=== PATIENT | male | born 1990 | race Caucasian/White ===

== ENCOUNTER 2024-07-16 16:06 | Inpatient (IN) | payer MEDICAID, OTHER ==
[~2024-07-16] VITALS: Ht 185.4 cm; Wt 109.0 kg
[~2024-07-16 16:06] MED LIST: TAMS-35 PO
[2024-07-16 17:05] LABS: Urine Bacteria FEW /hpf (None Seen); Urine Blood 3+ /uL (Negative); Urine Clarity Clear (Clear); Urine Color Light-Yellow (Yellow); Urine Mucus FEW (None Seen); Urine Protein, UAD Negative (Negative); Urine Squamous Epithelial Cell FEW /hpf (<5); Urine Urobilinogen Normal (Negative); Urine WBC 2 /HPF (0-3); Urine pH 5.5 (5.0-9.0)
--- NOTE | 2024-07-16 18:48 | ED.PDOC ---
General HPI Comments 33 y.o male presents to the ED for a chief complaint of hematuria associated with nausea, lower back and abdominal pain that started today. Patient reports going to the restroom and noticing bright red blood, states he finished urinating and was still dribbling blood. 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 Patient denies any vomiting, diarrhea, constipation, fever, chills or flank pain. Patient has a medical history of kidney stones with ureter stent placement. Chief Complaint: Urinary Time Seen by MD: 18:27 Primary Care Provider: NONE Reviewed notes: Nurses Notes, Medications, Allergies Allergies: Coded Allergies: Ciprofloxacin (Verified Allergy, Severe, RASH, 07/17/17) Ibuprofen (Verified Allergy, Severe, RASH, 07/17/17) Sulfa Antibiotics (Verified Allergy, Severe, RASH, 07/17/17) Home Meds Active Scripts Tamsulosin Hcl (Flomax) 0.4 Mg Cap, 0.4 MG PO QPM, #7 CAP Prov:ERIKA ORTIZ MD 07/20/17 Information Source: Patient Mode of Arrival: Ambulatory Severity: Moderate Timing: Hours Duration: Since onset Onset: Spontaneous Symptoms: Hematuria History of: Kidney stone Location: Abdomen Penile discharge: None Modifying factors: None associated signs and symptoms: Abdominal Pain, Nausea, Back Pain, Hematuria Past Medical History PAST MEDICAL HISTORY: Kidney Stones Surgical History (Other): ureter stent Family History Family History: No family hx of HTN Social History Smoker: Non-Smoker Alcohol: Denies ETOH Use Drugs: Marijuana Lives In: Home Constitutional: denies: chills, diaphoresis, fatigue, fever, malaise, sweats, weakness, others EENTM: denies: blurred vision, double vision, ear bleeding, ear discharge, ear drainage, ear pain, ear ringing, eye pain, eye redness, hearing loss, mouth pain, mouth swelling, nasal discharge, nose bleeding, nose congestion, nose pain, photophobia, tearing, throat pain, throat swelling, voice changes, others Respiratory: denies: cough, hemoptysis, orthopnea, SOB at rest, shortness of breath, SOB with excertion, stridor, wheezing, others Cardiovascular: denies: chest pain, dizzy spells, diaphoresis, Dyspnea on exertion, edema, irregular heart beat, left arm pain, lightheadedness, palpitations, PND, syncope, others Gastrointestinal: reports: abdominal pain; denies: abdomen distended, blood streaked bowels, constipated, diarrhea, dysphagia, difficulty swallowing, hematemesis, melena, nausea, poor appetite, poor fluid intake, rectal bleeding, rectal pain, vomiting, others Genitourinary: reports: hematuria; denies: burning, dysuria, flank pain, frequency, incontinence, penile discharge, penile sore, pain, testicle pain, testicle swelling, urgency, others Neurological: denies: dizziness, fainting, headache, left sided numbness, left sided weakness, numbness, paresthesia, pre-existing deficit, right sided numbness, right sided weakness, seizure, speech problems, tingling, tremors, weakness, others Musculoskeletal: reports: back pain; denies: gout, joint pain, joint swelling, muscle pain, muscle stiffness, neck pain, others Integumetry: denies: bruises, change in color, change in hair/nails, dryness, laceration, lesions, lumps, rash, wounds, others Allergic/Immunocompromised: denies: Difficulty Healing, Frequent Infections, Hives, Itching, others Hematologic/Lymphatic: denies: anemia, blood clots, easy bleeding, easy bruising, swollen glands, others Endocrine: denies: excessive hunger, excessive sweating, excessive thirst, excessive urination, flushing, intolerance to cold, intolerance to heat, unexplained weight gain, unexplained weight loss, others Psychiatric: denies: anxiety, bipolar disorder, depression, hopeless, panic disorder, schizophrenia, sleepless, suicidal, others All Other Systems: Reviewed and Negative Physical Exam General Appearance: No Apparent Distress HEENT: Other (Pupils and face symmetric. Moist mucous membranes.) Neck: Full Range of Motion, Normal Inspection Respiratory: Lungs Clear, No Accessory Muscle Use, No Respiratory Distress, Normal Breath Sounds Cardiovascular: No Edema, No JVD, Regular Rate/Rhythm Breast Exam: Deferred Gastrointestinal: Soft, Suprapubic, Tenderness Genitalia: Deferred Pelvic: Deferred Rectal: Deferred Extremities: Normal inspection, Normal range of motion, Non-tender, No pedal edema Neurologic: Alert (Oriented x4), Normal Affect, Normal Mood, Other (Ambulatory without difficulty) Cerebellar Function: NOT DONE Reflexes: NOT DONE Skin: Dry, Normal Color, Warm Lymphatic: NOT DONE Was a procedure done? Was a procedure done?: No Differential Diagnosis Kidney stone (Female): N/A Kidney stone (Male): Pyelonephritis, Renal failure, Strain, Urinary obstruct ion, Urolithiasis, Urinary tract infection X-Ray, Labs, Meds, VS Vital Signs Date Time Temp Pulse Resp B/P (MAP) Pulse Ox O2 Delivery O2 Flow Rate FiO2 07/16/24 21:46 63 16 165/80 07/16/24 21:16 97.8 63 16 165/80 (108) 95 97.8 07/16/24 21:16 63 14 95 Room Air* 0 21 07/16/24 16:28 98.4 80 18 140/70 (93) 97 98.4 Lab Test 07/16/24 18:32 07/16/24 16:32 Range/Units White Blood Count 9.9 4.4-10.8 10^3/uL Red Blood Count 5.15 4.5-5.90 10^6/uL Hemoglobin 16.4 13.5-17.5 g/dL Hematocrit 47.8 41.0-53.0 % Mean Corpuscular Volume 92.8 80.0-100.0 fL Mean Corpuscular Hemoglobin 31.8 28.0-32.0 pg Mean Corpuscular Hemoglobin Concent 34.2 32.0-36.0 g/dL Red Cell Distribution Width 13.3 11.8-14.3 % Platelet Count 307 140-450 10^3/uL Mean Platelet Volume 8.3 6.9-10.8 fL Neutrophils (%) (Auto) 62.6 37.0-80.0 % Lymphocytes (%) (Auto) 26.3 10.0-50.0 % Monocytes (%) (Auto) 8.8 0.0-12.0 % Eosinophils (%) (Auto) 1.4 0.0-7.0 % Basophils (%) (Auto) 0.9 0.0-2.0 % Neutrophils # (Auto) 6.2 1.6-8.6 10 ^3/uL Lymphocytes # (Auto) 2.6 0.4-5.4 10 ^3/uL Monocytes # (Auto) 0.9 0-1.3 10 ^3/uL Eosinophils # (Auto) 0.1 0-0.8 10 ^3/uL Basophils # (Auto) 0.1 0-0.2 10 ^3/uL Nucleated Red Blood Cells 0.2 % Prothrombin Time 10.8 9.3-11.8 sec Prothrombin Time INR 1.02 0.9-1.15 Activated Partial Thromboplast Time 28.8 24.5-34.5 SEC Sodium Level 140 136-145 mmol/L Potassium Level 4.2 3.5-5.1 mmol/L Chloride Level 105 98-107 mmol/L Carbon Dioxide Level 27 20-31 mmol/L Anion Gap 8 5-15 Blood Urea Nitrogen 7 L 9-23 mg/dL Creatinine 0.85 0.700-1.30 mg/dL Glomerular Filtration Rate Calc 118 >90 mL/min BUN/Creatinine Ratio 8.2 L 10.0-20.0 Serum Glucose 87 74-106 mg/dL Calcium Level 10.1 8.7-10.4 mg/dL Urine Color Light-yellow Yellow Urine Clarity Clear Clear Urine pH 5.5 5.0-9.0 Urine Specific [place] 1.020 1.001-1.035 Urine Protein Negative Negative Urine Ketones Negative Negative Urine Blood 3+ H Negative /uL Urine Nitrite Negative Negative Urine Bilirubin Negative Negative Urine Urobilinogen Normal Negative mg/dL Urine Leukocyte Esterase Negative Negative /uL Urine RBC 2 0 - 3 /hpf Urine Microscopic WBC 2 0-3 /HPF Urine Squamous Epithelial Cells Few <5 /hpf Urine Bacteria Few H None Seen /hpf Urine Mucus Few None Seen Urine Glucose Normal Normal mg/dL Current Medications Medications (Trade) Dose Ordered Sig/Rosendo Route Start Time Stop Time Status Last Admin Morphine Sulfate 4 mg ONCE ONCE IV 07/16/24 19:00 07/16/24 19:01 DC 07/16/24 21:46 Ondansetron HCl (Zofran) 4 mg ONCE ONCE IV 07/16/24 19:00 07/16/24 19:01 DC 07/16/24 21:45 Sodium Chloride 1,000 ml @ 1,000 mls/hr Q1H ONCE IV 07/16/24 19:00 07/16/24 19:59 DC 07/16/24 21:[address] [address] Ph: [phone] DIAGNOSTIC IMAGING Diagnostic Imaging Report : [id number] Signed PATIENT: YOCASTA DEE ACCT: [id number] UNIT: [id number] : 1990 LOC: ER ROOM / BED: / AGE / SEX: 33 / M ADM STATUS: REG ER SERVICE 1754 ORDERING PHYSICIAN: VALENTINA RIOS MD PROCEDURE(s): ABPL - CT AB PEL WO CON-NO ORAL OR IV REASON: hematuria ORDER NUMBER(s): [id number], ACCESSION NUMBER(s): [id number] Exam: CT CT AB PEL WO CON-NO ORAL OR IV History: hematuria Comparison Study: None available at time of dictation. TECHNIQUE: Multidetector CT of the abdomen was performed from lung bases to pubic symphysis. Imaging was performed without IV contrast. Axial, coronal and sagittal multiplanar reformats were obtained from the axial data set by the technologist. Radiation Dose Information: CT Dose: CTDI volume is 25.7 mGy. Dose-length product is 1529.53 mGy*cm FINDINGS: Evaluation of solid organs is limited due to lack of intravenous contrast use. Findings: Lung Bases: No acute or significant lung base finding. Normal heart size. No pleural or pericardial effusion. Liver: The liver is normal in size. No focal lesions. Gallbladder and Biliary Tree: Unremarkable Spleen: Unremarkable Pancreas: The pancreas is grossly normal in appearance. Adrenal Glands: Unremarkable Kidneys: Kidneys are grossly normal without calculi or hydronephrosis. No n ephrolithiasis or hydronephrosis. No ureteral calculi. No bladder calculi. Bladder: Grossly unremarkable for degree of distention. Bowel: The stomach is grossly normal in appearance. Small bowel and colon are normal in caliber and distribution. The appendix is not visualized; however, no secondary findings of acute appendicitis identified. Ascites: Absent Lymphadenopathy: No mesenteric, retroperitoneal or periportal lymphadenopathy. Abdominal Wall and Mesentery: Unremarkable. Vasculature: The visualized abdominal aorta is normal in size and caliber. Evaluation of abdominal and pelvic vessels is limited due to lack of intravenous contrast. Pelvic Organs: Unremarkable Musculoskeletal: No aggressive focal bony lesions, acute fractures or dislocatio n. Soft tissues: Unremarkable IMPRESSION: 1. No nephrolithiasis no hydronephrosis. 2. No ureteral calculi or bladder calculi. 3. No calcified gallstones. 4. No findings of bowel obstruction. Radiation optimization: All CT scans at this facility use at least one of these dose optimization techniques: automated exposure control mA and/or kV adjustment per patient size (includes targeted exams where dose is matched to clinical indication) or iterative reconstruction. X-Ray, Labs, Meds, VS Comment 33-year-old male with a history of kidney stones complaining of hematuria, nausea and dysuria Vitals unremarkable Exam remarkable for suprapubic tenderness to palpation Rhythm strip independently interpreted by me: Sinus rhythm, rate 80, no ectopy. CT abdomen and pelvis IMPRESSION: 1. No nephrolithiasis no hydronephrosis. 2. No ureteral calculi or bladder calculi. 3. No calcified gallstones. 4. No findings of bowel obstruction. CBC, basic metabolic panel and coagulation panel unremarkable, UA positive for blood and bacteria Patient treated with the following in the ED: 1 L 0.9 normal saline IV bolus, morphine 4 mg IV, Zofran 4 mg IV, Rocephin 1 g IV On re-evaluation, patient states pain has improved. Vitals were stable. Repeat abdominal exam was benign. Hospitalization was considered, however patient had rapid improvement of symptoms with treatment in the ED, and I no longer feel hospitalization is necessary. Workup findings indicate possible recently passed stone versus UTI or both. Patient now appears stable for discharge with close outpatient follow- up with his primary physician. Rx Keflex, Tylenol, ibuprofen, Pyridium Time of 1ST Reevaluation: 18:54 Reevaluation 1ST: Unchanged Time of 2ND Reevaluation: 22:28 Patient Education/Counseling: Diagnosis, Treatment, Prognosis Family Education/Counseling: No Family Present Departure 1 Departure Time of Disposition: 22:29 Impression: Primary Impression: Hematuria Additional Impression: UTI (urinary tract infection) Disposition: 01 HOME / SELF CARE / HOMELESS Condition: Stable Additional Instructions: Your blood tests were unremarkable. Your urine test showed blood and some bacteria, indicating a possible urinary infection. Your CT scan was unremarkable. I have enclosed the report below. Specifically, there was no evidence of kidney stones. I have prescribed antibiotics and pain medications. Follow-up with your primary doctor in 1-2 days. Return to ER for persistent or worsening symptoms. [place] [address] Ph: [phone] DIAGNOSTIC IMAGING Diagnostic Imaging Report : [id number] Signed PATIENT: YOCASTA DEE ACCT: [id number] UNIT: [id number] : 1990 LOC: ER ROOM / BED: / AGE / SEX: 33 / M ADM STATUS: [facility] ER SERVICE 1754 ORDERING PHYSICIAN: VALENTINA RIOS MD PROCEDURE(s): ABPL - CT AB PEL WO CON-NO ORAL OR IV REASON: hematuria ORDER NUMBER(s): [id number], ACCESSION NUMBER(s): [id number] Exam: CT CT AB PEL WO CON-NO ORAL OR IV History: hematuria Comparison Study: None available at time of dictation. TECHNIQUE: Multidetector CT of the abdomen was performed from lung bases to pubic symphysis. Imaging was performed without IV contrast. Axial, coronal and sagittal multiplanar reformats were obtained from the axial data set by the technologist. Radiation Dose Information: CT Dose: CTDI volume is 25.7 mGy. Dose-length product is 1529.53 mGy*cm FINDINGS: Evaluation of solid organs is limited due to lack of intravenous contrast use. Findings: Lung Bases: No acute or significant lung base finding. Normal heart size. No pleural or pericardial effusion. Liver: The liver is normal in size. No focal lesions. Gallbladder and Biliary Tree: Unremarkable Spleen: Unremarkable Pancreas: The pancreas is grossly normal in appearance. Adrenal Glands: Unremarkable Kidneys: Kidneys are grossly normal without calculi or hydronephrosis. No nephrolithiasis or hydronephrosis. No ureteral calculi. No bladder calculi. Bladder: Grossly unremarkable for degree of distention. Bowel: The stomach is grossly normal in appearance. Small bowel and colon are normal in caliber and distribution. The appendix is not visualized; however, no secondary findings of acute appendicitis identified. Ascites: Absent Lymphadenopathy: No mesenteric, retroperitoneal or periportal lymphadenopathy. Abdominal Wall and Mesentery: Unremarkable. Vasculature: The visualized abdominal aorta is normal in size and caliber. Evaluation of abdominal and pelvic vessels is limited due to lack of intravenous contrast. Pelvic Organs: Unremarkable Musculoskeletal: No aggressive focal bony lesions, acute fractures or dislocation. Soft tissues: Unremarkable IMPRESSION: 1. No nephrolithiasis no hydronephrosis. 2. No ureteral calculi or bladder calculi. 3. No calcified gallstones. 4. No findings of bowel obstruction. Radiation optimization: All CT scans at this facility use at least one of these dose optimization techniques: automated exposure control mA and/or kV adjustment per patient size (includes targeted exams where dose is matched to clinical indication) or iterative reconstruction. e-Prescriptions Phenazopyridine HCl (Phenazopyridine Hydrochol) 200 Mg Tab 200 MG PO TID PRN, #9 TAB Prn urinary pain Prov: VALENTINA RIOS MD 07/16/24 Ibuprofen Micronized (Ibuprofen) 800 Mg Tab 800 MG PO Q8HP PRN, #30 TAB Prn fever or pain. Take with food. Prov: VALENTINA RIOS MD 07/16/24 Acetaminophen (Tylenol Extra Strength) 500 Mg Tab 1000 MG PO Q6HP PRN, #30 TAB Prn fever or pain Prov: VALENTINA RIOS MD 07/16/24 Cephalexin Monohydrate (Cephalexin) 500 Mg Cap 1 CAP PO QID for 10 Days, #40 CAP Prov: VALENTINA RIOS MD 07/16/24 Discharged With: Relative Critical Care Note Critical Care Time?: No Stability Stability form required: No I personally scribed for VALENTINA RIOS MD (ARLENE) on 07/16/24 at 18:48. Electronically submitted by Sandra Nagy ([facility]). I personally scribed for VALENTINA RIOS MD) on 07/16/24 at 18:54. Electronically submitted by Sandra Nagy ([facility]). VALENTINA RIOS MD Jul 16, 2024 18:48
[2024-07-16 18:58] LABS: Chloride 105 mmol/L (98-107); Potassium 4.2 mmol/L (3.5-5.1); Sodium 140 mmol/L (136-145)
[2024-07-16 18:59] LABS: Anion Gap 8 (5-15); Calcium 10.1 mg/dL (8.7-10.4); Carbon Dioxide 27 mmol/L (20-31)
[2024-07-16 19:04] LABS: BUN/Creatinine Ratio 8.2 (10.0-20.0); Glucose 87 mg/dL (74-106)
[2024-07-16 19:08] LABS: Basophils # (auto) 0.1 10 ^3/uL (0-0.2); Basophils % (auto) 0.9 % (0.0-2.0); Blood Urea Nitrogen 7 mg/dL (9-23); Eosinophils # (auto) 0.1 10 ^3/uL (0-0.8); Eosinophils % (auto) 1.4 % (0.0-7.0); Hematocrit 47.8 % (41.0-53.0); Hemoglobin 16.4 g/dL (13.5-17.5); Lymphocytes # (auto) 2.6 10 ^3/uL (0.4-5.4); Lymphocytes % (auto) 26.3 % (10.0-50.0); Mean Corpuscular Hemoglobin 31.8 pg (28.0-32.0); Mean Corpuscular Hgb Conc. 34.2 g/dL (32.0-36.0); Mean Corpuscular Volume 92.8 fL (80.0-100.0); Monocytes # (auto) 0.9 10 ^3/uL (0-1.3); Monocytes % (auto) 8.8 % (0.0-12.0); Neutrophils # (auto) 6.2 10 ^3/uL (1.6-8.6); Neutrophils % (auto) 62.6 % (37.0-80.0); Nucleated Red Blood Cells % 0.2 %; Platelet Count (auto) 307 10^3/uL (140-450); Red Blood Cells 5.15 10^6/uL (4.5-5.90); Red Cell Distribution Width 13.3 % (11.8-14.3); White Blood Cell 9.9 10^3/uL (4.4-10.8)
[2024-07-16 19:20] LABS: INR 1.02 (0.9-1.15); Partial Thromboplastin Time 28.8 SEC (24.5-34.5); Prothrombin Time 10.8 sec (9.3-11.8)
--- NOTE | 2024-07-16 19:27 | DVH ---
Exam: CT CT AB PEL WO CON-NO ORAL OR IV History: hematuria Comparison Study: None available at time of dictation. TECHNIQUE: Multidetector CT of the abdomen was performed from lung bases to pubic symphysis. Imaging was performed without IV contrast. Axial, coronal and sagittal multiplanar reformats were obtained fr om the axial data set by the technologist. Radiation Dose Information: CT Dose: CTDI volume is 25.7 mGy. Dose-length product is 1529.53 mGy*cm FINDINGS: Evaluation of solid organs is limited due to lack of intravenous contrast use. Findings: Lung Bases: No acute or significant lung base finding. Normal heart size. No pleural or pericardial effusion. Liver: The liver is normal in size. No focal lesions. Gallbladder and Biliary Tree: Unremarkable Spleen: Unremarkable Pancreas: The pancreas is grossly normal in appearance. Adrenal Glands: Unremarkable Kidneys: Kidneys are grossly normal without calculi or hydronephrosis. No nephrolithiasis or hydronep hrosis. No ureteral calculi. No bladder calculi. Bladder: Grossly unremarkable for degree of distention. Bowel: The stomach is grossly normal in appearance. Small bowel and colon are normal in caliber and d istribution. The appendix is not visualized; however, no secondary findings of acute appendicitis id entified. Ascites: Absent Lymphadenopathy: No mesenteric, retroperitoneal or periportal lymphadenopathy. Abdominal Wall and Mesentery: Unremarkable. Vasculature: The visualized abdominal aorta is normal in size and caliber. Evaluation of abdominal a nd pelvic vessels is limited due to lack of intravenous contrast. Pelvic Organs: Unremarkable Musculoskeletal: No aggressive focal bony lesions, acute fractures or dislocation. Soft tissues: Unremarkable IMPRESSION: 1. No nephrolithiasis no hydronephrosis. 2. No ureteral calculi or bladder calculi. 3. No calcified gallstones. 4. No findings of bowel obstruction. Radiation optimization: All CT scans at this facility use at least one of these dose optimization sriram hniques: automated exposure control mA and/or kV adjustment per patient size (includes targeted exam s where dose is matched to clinical indication) or iterative reconstruction.
[2024-07-16 21:16] VITALS: PULSE 63; RESP 14; O2SAT 95
[2024-07-16] MEDS: SODIUM CHLORIDE 0.9% 1,000 ML IV ONE (21:45)
[2024-07-16] MEDS: ONDANSETRON HCL 4 MG/2 ML VIAL IV ONE (21:45)
[2024-07-16] MEDS: MORPHINE SULFATE 4 MG/ML SYR/VIAL IV ONE (21:46)
[2024-07-16] MEDS ORDERED: IBUP-1455 PO (22:33)
[2024-07-16] MEDS ORDERED: PHEN-1045 PO (22:33)
[2024-07-16] MEDS ORDERED: ACET-1304 PO (22:33)
[2024-07-16] MEDS ORDERED: CEPH500C PO (22:33)
[2024-07-16] MEDS: PHENAZOPYRIDINE HCL 100 MG TAB PO ONE (23:37)
[2024-07-16] MEDS: KETOROLAC TROMETH 30 MG/ML 1ML VIAL IV ONE (23:38)
[2024-07-16] MEDS: cefTRIAXone 1GM/50ML D5W 50 ML IV ONE (23:38)
[2024-07-17] VITALS (10 sets, daily range): BP systolic 119–149; BP diastolic 60–80; PULSE 60–100; RESP 15–19; TEMP 97.2–98.5; O2SAT 10–100
--- NOTE | 2024-07-17 00:49 | ED.PDOC ---
Departure 1 Departure Time of Disposition: 00:48 (Attempted to discharge patient however patient developed worsening pain that was intractable. We will admit patient for further workup) Impression: Primary Impression: Hematuria Qualified Codes: R31.9 - Hematuria, unspecified Additional Impressions: UTI (urinary tract infection) Qualified Codes: N30.01 - Acute cystitis with hematuria Flank pain Disposition: ADMITTED INPATIENT Admit to: Med Surg Condition: Serious Additional Instructions: Your blood tests were unremarkable. Your urine test showed blood and some bacteria, indicating a possible urinary infection. Your CT scan was unremarkable. I have enclosed the report below. Specifically, there was no evidence of kidney stones. I have prescribed antibiotics and pain medications. Follow-up with your primary doctor in 1-2 days. Return to ER for persistent or worsening symptoms. [place] [address] Ph: [phone] DIAGNOSTIC IMAGING Diagnostic Imaging Report : [id number] Signed PATIENT: YOCASTA DEE ACCT: [id number] UNIT: [id number] : 1990 LOC: ER ROOM / BED: / AGE / SEX: 33 / M ADM STATUS: [facility] ER SERVICE 3898 ORDERING PHYSICIAN: VALENTINA RIOS MD PROCEDURE(s): ABPL - CT AB PEL WO CON-NO ORAL OR IV REASON: hematuria ORDER NUMBER(s): [id number], ACCESSION NUMBER(s): [id number] Exam: CT CT AB PEL WO CON-NO ORAL OR IV History: hematuria Comparison Study: None available at time of dictation. TECHNIQUE: Multidetector CT of the abdomen was performed from lung bases to pubic symphysis. Imaging was performed without IV contrast. Axial, coronal and sagittal multiplanar reformats were obtained from the axial data set by the technologist. Radiation Dose Information: CT Dose: CTDI volume is 25.7 mGy. Dose-length product is 1529.53 mGy*cm FINDINGS: Evaluation of solid organs is limited due to lack of intravenous contrast use. Findings: Lung Bases: No acute or significant lung base finding. Normal heart size. No pleural or pericardial effusion. Liver: The liver is normal in size. No focal lesions. Gallbladder and Biliary Tree: Unremarkable Spleen: Unremarkable Pancreas: The pancreas is grossly normal in appearance. Adrenal Glands: Unremarkable Kidneys: Kidneys are grossly normal without calculi or hydronephrosis. No nephrolithiasis or hydronephrosis. No ureteral calculi. No bladder calculi. Bladder: Grossly unremarkable for degree of distention. Bowel: The stomach is grossly normal in appearance. Small bowel and colon are normal in caliber and distribution. The appendix is not visualized; however, no secondary findings of acute appendicitis identified. Ascites: Absent Lymphadenopathy: No mesenteric, retroperitoneal or periportal lymphadenopathy. Abdominal Wall and Mesentery: Unremarkable. Vasculature: The visualized abdominal aorta is normal in size and caliber. Evaluation of abdominal and pelvic vessels is limited due to lack of intravenous contrast. Pelvic Organs: Unremarkable Musculoskeletal: No aggressive focal bony lesions, acute fractures or dislocation. Soft tissues: Unremarkable IMPRESSION: 1. No nephrolithiasis no hydronephrosis. 2. No ureteral calculi or bladder calculi. 3. No calcified gallstones. 4. No findings of bowel obstruction. Radiation optimization: All CT scans at this facility use at least one of these dose optimization techniques: automated exposure control mA and/or kV adjustment per patient size (includes targeted exams where dose is matched to clinical indication) or iterative reconstruction. e-Prescriptions Phenazopyridine HCl (Phenazopyridine Hydrochol) 200 Mg Tab 200 MG PO TID PRN, #9 TAB Prn urinary pain Prov: VALENTINA RIOS MD 07/16/24 Ibuprofen Micronized (Ibuprofen) 800 Mg Tab 800 MG PO Q8HP PRN, #30 TAB Prn fever or pain. Take with food. Prov: VALENTINA RIOS MD 07/16/24 Acetaminophen (Tylenol Extra Strength) 500 Mg Tab 1000 MG PO Q6HP PRN, #30 TAB Prn fever or pain Prov: VALENTINA RIOS MD 07/16/24 Cephalexin Monohydrate (Cephalexin) 500 Mg Cap 1 CAP PO QID for 10 Days, #40 CAP Prov: VALENTINA RIOS MD 07/16/24 Discharged With: Relative HARI SUN MD Jul 17, 2024 00:49
[2024-07-17] MEDS ORDERED: ACETAMINOPHEN 325 MG TAB PO PRN (01:00)
--- NOTE | 2024-07-17 01:05 | DVHHPRES ---
History of Present Illness Resident Creating Document: REBEL OBRIEN History of Present Illness James Laboy is a 33-year-old male patient who presents to the ED with chief complaint of hematuria and right flank pain. Per patient he has constant hepatic dribbling from penis even when he is not urinating. The pain actually starts from his penile area and goes up to his right flank. Denies fever, chills, palpitation, syncope, chest pain, dyspnea, nausea, vomiting, diarrhea, dysuria, sick contacts, recent travel and motor or sensory deficits. Past medical history: Hypertension, kidney stones diagnosed approximately three years ago with requirement of stent placement and removal and two sessions of lithotripsy, patient describes probable urethral stricture (says that they could not place a baby catheter through his penis), he was evaluated by Dr. Guerra previously. Crohn's disease, benign small intestine tumor. 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 Father of stroke Social history: Lives in [place] with family. Ex tobacco abuse (approximately 1-2 cigarettes a day only for two years), per patient he stopped smoking alcohol three days ago. Denies current alcohol and other drug abuse Allergies: Ciprofloxacin, sulfa antibiotics, ibuprofen Home medication: Tylenol In seen and examined in ED chair. Currently presents right flank pain. Could not examine his penis to evaluate hemorrhagic drainage. Past Medical History Per HPI Past Surgical History Per HPI Family History Per HPI Past Social History Per HPI Review of Systems Review of Systems Per HPI Allergies: Coded Allergies: Ciprofloxacin (Verified Allergy, Severe, RASH, 07/17/17) Ibuprofen (Verified Allergy, Severe, RASH, 07/17/17) Sulfa Antibiotics (Verified Allergy, Severe, RASH, 07/17/17) Nitrofurantoin (Verified Allergy, Unknown, 07/20/24) Exam Vital Signs Vital Signs Date Time Temp Pulse Resp B/P (MAP) Pulse Ox O2 Delivery O2 Flow Rate FiO2 07/16/24 22:16 60 16 155/70 07/16/24 21:16 97.8 95 97.8 07/16/24 21:16 Room Air* 0 21 Exam Patient lying in bed, in no acute distress General: Lucid, afebrile, mucosae are moist Cardiovascular: Normal S1 and S2. No murmurs, gallops or rubs Respiratory: Normal ventilation mechanics. Clear lung sounds on auscultation Abdomen: Soft, nontender, no organomegaly, normal bowel sounds MSK/skin: Mobilizes 4 limbs. Skin is dry and warm : Right costovertebral tenderness on percussion. Could not examine penis Neurological: Oriented in 3 spheres. No motor no sensitive deficits. Pupils are isocoric and reactive Labs/Xrays Labs Test 07/16/24 18:32 07/16/24 16:32 Range/Units White Blood Count 9.9 4.4-10.8 10^3/uL Red Blood Count 5.15 4.5-5.90 10^6/uL Hemoglobin 16.4 13.5-17.5 g/dL Hematocrit 47.8 41.0-53.0 % Mean Corpuscular Volume 92.8 80.0-100.0 fL Mean Corpuscular Hemoglobin 31.8 28.0-32.0 pg Mean Corpuscular Hemoglobin Concent 34.2 32.0-36.0 g/dL Red Cell Distribution Width 13.3 11.8-14.3 % Platelet Count 307 140-450 10^3/uL Mean Platelet Volume 8.3 6.9-10.8 fL Neutrophils (%) (Auto) 62.6 37.0-80.0 % Lymphocytes (%) (Auto) 26.3 10.0-50.0 % Monocytes (%) (Auto) 8.8 0.0-12.0 % Eosinophils (%) (Auto) 1.4 0.0-7.0 % Basophils (%) (Auto) 0.9 0.0-2.0 % Neutrophils # (Auto) 6.2 1.6-8.6 10 ^3/uL Lymphocytes # (Auto) 2.6 0.4-5.4 10 ^3/uL Monocytes # (Auto) 0.9 0-1.3 10 ^3/uL Eosinophils # (Auto) 0.1 0-0.8 10 ^3/uL Basophils # (Auto) 0.1 0-0.2 10 ^3/uL Nucleated Red Blood Cells 0.2 % Prothrombin Time 10.8 9.3-11.8 sec Prothrombin Time INR 1.02 0.9-1.15 Activated Partial Thromboplast Time 28.8 24.5-34.5 SEC Sodium Level 140 136-145 mmol/L Potassium Level 4.2 3.5-5.1 mmol/L Chloride Level 105 98-107 mmol/L Carbon Dioxide Level 27 20-31 mmol/L Anion Gap 8 5-15 Blood Urea Nitrogen 7 L 9-23 mg/dL Creatinine 0.85 0.700-1.30 mg/dL Glomerular Filtration Rate Calc 118 >90 mL/min BUN/Creatinine Ratio 8.2 L 10.0-20.0 Serum Glucose 87 74-106 mg/dL Calcium Level 10.1 8.7-10.4 mg/dL Urine Color Light-yellow Yellow Urine Clarity Clear Clear Urine pH 5.5 5.0-9.0 Urine Specific [place] 1.020 1.001-1.035 Urine Protein Negative Negative Urine Ketones Negative Negative Urine Blood 3+ H Negative /uL Urine Nitrite Negative Negative Urine Bilirubin Negative Negative Urine Urobilinogen Normal Negative mg/dL Urine Leukocyte Esterase Negative Negative /uL Urine RBC 2 0 - 3 /hpf Urine Microscopic WBC 2 0-3 /HPF Urine Squamous Epithelial Cells Few <5 /hpf Urine Bacteria Few H None Seen /hpf Urine Mucus Few None Seen Urine Glucose Normal Normal mg/dL Assessment/Plan Assessment/Plan Assessment: Gross hematuria UTI Probable urethral stricture History of kidney stones status post stent placement in two sessions of lithotripsy Crohn's disease History of Cryptorchidism status postop Benign small intestinal tumor Morbid obesity Hypertension Plan: Optimize pain management, gave IV fluid, under empiric IV antibiotic (ceftriaxone). Obtain abdomen and pelvis CT: No acute findings Urinalysis shows blood plus three and few bacteria Ordered urology evaluation. Patient has history of kidney stones with stent placement into sessions and lithotripsy, questionable urethral stricture. Patient is urinating at the time, no Vale is indicated. Ordered bladder scan to evaluate urinary retention Goals of care discussed with patient for over 18 minutes: Full code status Discussed plan with Dr. Holcomb, patient and nurses: Continue with IV fluids, empiric IV antibiotic and pain management. Ordered bladder scan to evaluate urinary retention. We will try to avoid Vale placement due to probable history of urethral stricture. Consulted Urology. Plan discussed with: Patient, Other (Nurses) My Orders Orders - REBEL OBRIEN RESIDENT Procedure Category Date Status Time Admit ADMIT 07/17/24 Verified 00:57 Code Status CODE 07/17/24 Verified 00:57 Vital Signs [facility] 07/17/24 Verified 00:57 Review Orders With [facility] 07/17/24 Verified Adm. 00:57 Npo (Nothing By DIET 07/17/24 Verified Mouth) Diet Breakfast Acetaminophen Tablet [facility] 07/17/24 Verified (Tylenol Tablet) 01:00 Notify Of Changes [facility] 07/17/24 Verified From Base 00:57 Advance Directive [facility] 07/17/24 Verified 00:57 Patient Condition ORDERS 07/17/24 Verified 00:57 Allergies [facility] 07/17/24 Verified 00:[address] [facility] 07/17/24 Verified (Zofran) 01:00 Morphine 2mg Iv Q4hprn PHA 07/17/24 Verified 01:00 Oxygen By Nasal RT 07/17/24 Verified Cannula 00:57 Stat Ekg For Chest [facility] 07/17/24 Verified Pain 00:57 Notify Of Changes [facility] 07/17/24 Verified From Base 00:57 Handbag Framer For [facility] 07/17/24 Verified 24 Hours 00:57 Emergency Dysrhythmia [facility] 07/17/24 Verified Protocol 00:57 Rhythm Strips Once [facility] 07/17/24 Verified Every Shift 00:57 * Urology Consult CONS 07/17/24 Verified 00:57 Kidney US 07/17/24 Verified 00:57 Urine Bacterial JAYCOB 07/17/24 Verified Culture 00:57 Ceftriaxone Ivpb PHA 07/17/24 Verified Rocephin 09:00 Vitamin D, 25-Hydroxy LAB 07/17/24 Verified 00:57 Vitamin B12 LAB 07/17/24 Verified 00:57 Thyroid Stimulating LAB 07/17/24 Verified Hormone 00:57 Phosphorus LAB 07/17/24 Verified 00:57 Magnesium LAB 07/17/24 Verified 00:57 Lipid Panel LAB 07/17/24 Verified 00:57 Hemoglobin A1c LAB 07/17/24 Verified 00:57 Drug Screen LAB 07/17/24 Verified 00:57 Hepatic Panel LAB 07/17/24 Verified 00:57 Complete Blood Count LAB 07/17/24 Verified 04:00 Basic Metabolic Panel LAB 07/17/24 Verified 04:00 Date of Service: Jul 17, 2024 Billing Provider: JON HOLCOMB MD Common Visit Codes: [id number] INP/OBS CARE (HIGH) REBEL OBRIEN RESIDENT Jul 17, 2024 01:05 JON HOLCOMB MD July 20, 2024 17:35
[2024-07-17] MEDS ORDERED: SODIUM CHLORIDE 0.9% 500 ML IV ONE (01:45)
[2024-07-17] MEDS ORDERED: TAMSULOSIN HYDROCHLORIDE 0.4 MG CAP PO ONE (01:45)
[2024-07-17] MEDS ORDERED: KETOROLAC TROMETH 30 MG/ML 1ML VIAL IV PRN ×2 (01:45→02:00)
[2024-07-17] MEDS ORDERED: SODIUM CHLORIDE 0.9% 1,000 ML IV SCH (01:45)
[2024-07-17 02:01] LABS: Amphetamine Screen, Urine Neg (NEGATIVE); Barbiturate Scree,Urine Neg (NEGATIVE); Benzodiazephine Screen, Urine Neg (NEGATIVE); Cannabinoid Screen, Urine Pos (NEGATIVE); Cocaine Screen, Urine Neg (NEGATIVE); Opiate Scree,Urine Neg (NEGATIVE); Phencyclidine Screen, Urine Neg (NEGATIVE)
--- NOTE | 2024-07-17 02:26 | DVH ---
US KIDNEY HISTORY: Hematuria COMPARISON: None TECHNIQUE: Real-time ultrasonography of the kidneys and urinary bladder was performed. FINDINGS: Right kidney measures 10.8 cm in length. Left kidney not fully visualized due to patient body habitus . No evidence of hydronephrosis or sonographically evident calculus or mass. Urinary bladder is incompl etely distended. Incidental note of increased hepatic echogenicity IMPRESSION: 1. No evidence of hydronephrosis or evident calculus. Poor visualization of the left kidney. 2. Incidental increased echogenicity of the liver suggesting fibrofatty hepatocellular disease, most commonly hepatic steatosis.
[2024-07-17] MEDS: TAMSULOSIN HYDROCHLORIDE 0.4 MG CAP PO ONE (03:49)
[2024-07-17] MEDS: ONDANSETRON HCL 4 MG/2 ML VIAL IV PRN (03:49)
[2024-07-17] MEDS: MORPHINE SULFATE INJ 2 MG/ml SYRG IV PRN (03:57)
[2024-07-17] MEDS: MORPHINE SULFATE INJ 2 MG/ml SYRG ONE (03:58)
[2024-07-17] MEDS: ONDANSETRON HCL 4 MG/2 ML VIAL ONE (03:58)
[2024-07-17] MEDS: SODIUM CHLORIDE 0.9% 500 ML IV ONE (04:03)
[2024-07-17 05:24] LABS: Basophils # (auto) 0.1 10 ^3/uL (0-0.2); Basophils % (auto) 0.9 % (0.0-2.0); Eosinophils # (auto) 0.2 10 ^3/uL (0-0.8); Eosinophils % (auto) 1.7 % (0.0-7.0); Hematocrit 42.1 % (41.0-53.0); Hemoglobin 14.7 g/dL (13.5-17.5); Lymphocytes # (auto) 2.5 10 ^3/uL (0.4-5.4); Lymphocytes % (auto) 22.4 % (10.0-50.0); Mean Corpuscular Hemoglobin 31.7 pg (28.0-32.0); Mean Corpuscular Hgb Conc. 34.9 g/dL (32.0-36.0); Mean Corpuscular Volume 90.8 fL (80.0-100.0); Monocytes # (auto) 1.2 10 ^3/uL (0-1.3); Monocytes % (auto) 10.8 % (0.0-12.0); Neutrophils # (auto) 7.2 10 ^3/uL (1.6-8.6); Neutrophils % (auto) 64.2 % (37.0-80.0); Platelet Count (auto) 295 10^3/uL (140-450); Red Blood Cells 4.63 10^6/uL (4.5-5.90); Red Cell Distribution Width 12.9 % (11.8-14.3); White Blood Cell 11.3 10^3/uL (4.4-10.8)
[2024-07-17 05:34] LABS: Magnesium 1.9 mg/dL (1.6-2.6); Total Protein 6.8 g/dL (5.7-8.2)
[2024-07-17 05:35] LABS: Albumin 4.4 g/dL (3.2-4.8); Bilirubin, Direct 0.1 mg/dL (<0.3); Bilirubin, Total 0.4 mg/dL (0.2-1.0); Phosphorus 3.2 mg/dL (2.4-5.1)
[2024-07-17 05:42] LABS: Anion Gap 6 (5-15); Carbon Dioxide 28 mmol/L (20-31); Chloride 107 mmol/L (98-107); Potassium 4.1 mmol/L (3.5-5.1); Sodium 141 mmol/L (136-145)
[2024-07-17 05:43] LABS: Calcium 9.5 mg/dL (8.7-10.4)
[2024-07-17 05:47] LABS: Glucose 89 mg/dL (74-106)
[2024-07-17 05:48] LABS: BUN/Creatinine Ratio 13.8 (10.0-20.0); Blood Urea Nitrogen 12 mg/dL (9-23)
[2024-07-17] MEDS: KETOROLAC TROMETH 30 MG/ML 1ML VIAL IV ONE (06:42)
[2024-07-17] MEDS: ERGOCALCIFEROL 50,000 UNIT(1.25MG) CAP PO SCH (06:52)
[2024-07-17] MEDS: CYANOCOBALAMIN (B-12) 1000 MCG/1 ML VIAL IM ONE (06:56)
[2024-07-17] MEDS: SODIUM CHLORIDE 0.9% 1,000 ML IV SCH (07:30)
[2024-07-17] MEDS: cefTRIAXone 1GM/50ML D5W 50 ML IV SCH (11:28)
--- NOTE | 2024-07-17 14:43 | DVHINCON2 ---
Date of service: Jul 17, 2024 Referring Physician Hospitalist Reason for Consultation Hematuria/urinary retention x 3 days History of Present Illness 33 y.o male admitted to [facility] for a chief complaint of hematuria associated with nausea, lower back and abdominal pain that started yesterday. He reports to me that he is unable to urinate for past three days. Patient reports going to the restroom and noticing bright red blood, states he finished urinating and was still dribbling blood. 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 Patient denies any vomiting, diarrhea, constipation, fever, chills or flank pain. Patient has a medical history of kidney stones with ureter stent placement. Chief Complaint: Urinary Primary Care Provider: NONE Reviewed notes: Nurses Notes, Medications, Allergies Allergies: Coded Allergies: Ciprofloxacin (Verified Allergy, Severe, RASH, 07/17/17) Ibuprofen (Verified Allergy, Severe, RASH, 07/17/17) Sulfa Antibiotics (Verified Allergy, Severe, RASH, 07/17/17) Home Meds Active Scripts Tamsulosin Hcl (Flomax) 0.4 Mg Cap, 0.4 MG PO QPM, #7 CAP Prov:ERIKA ORTIZ MD 07/20/17 Information Source: Patient Mode of Arrival: Ambulatory Severity: Moderate Timing: Hours Duration: Since onset Onset: Spontaneous Symptoms: Hematuria History of: Kidney stone Location: Abdomen Penile discharge: None Modifying factors: None associated signs and symptoms: Abdominal Pain, Nausea, Back Pain, Hematuria Past Medical History Kidney Stones Past Surgical History Lithotripsy ureter stent Orchiopexy Urethral stricture disease/DVIU Family History: Hypertension G8 FATHER Allergies: Coded Allergies: Ciprofloxacin (Verified Allergy, Severe, RASH, 07/17/17) Ibuprofen (Verified Allergy, Severe, RASH, 07/17/17) Sulfa Antibiotics (Verified Allergy, Severe, RASH, 07/17/17) Home Meds Active Scripts Phenazopyridine HCl (Phenazopyridine Hydrochol) 200 Mg Tab, 200 MG PO TID PRN, #9 TAB Prn urinary pain Prov:VALENTINA RIOS MD 07/16/24 Ibuprofen Micronized (Ibuprofen) 800 Mg Tab, 800 MG PO Q8HP PRN, #30 TAB Prn fever or pain. Take with food. Prov:VALENTINA RIOS MD 07/16/24 Acetaminophen (Tylenol Extra Strength) 500 Mg Tab, 1000 MG PO Q6HP PRN, #30 TAB Prn fever or pain Prov:VALENTINA RIOS MD 07/16/24 Cephalexin Monohydrate (Cephalexin) 500 Mg Cap, 1 CAP PO QID for 10 Days, #40 CAP Prov:VALENTINA RIOS MD 07/16/24 Tamsulosin Hcl (Flomax) 0.4 Mg Cap, 0.4 MG PO QPM, #7 CAP Prov:ERIKA ORTIZ MD 07/20/17 Current Medications Current Medications Medications (Trade) Dose Ordered Sig/Rosendo Route PRN Reason Start Time Stop Time Status Last Admin Acetaminophen (Tylenol Tablet) 650 mg Q6HP PRN PO PAIN SCALE 1-3 OR TEMP>100.4 07/17/24 01:00 Ondansetron HCl (Zofran) 4 mg Q4HP PRN IV NAUSEA / VOMITING 07/17/24 01:00 07/17/24 03:49 Morphine Sulfate 2 mg Q4HPRN PRN IV SEVERE PAIN (7-10 PAIN SCALE) 07/17/24 01:00 07/17/24 10:22 Ceftriaxone Sodium 50 ml @ 100 mls/hr DAILY@09 IV 07/17/24 09:00 07/17/24 11:28 Sodium Chloride 1,000 ml @ 100 mls/hr Q10H IV 07/17/24 01:45 07/17/24 01:45 DC Tamsulosin HCl (Flomax) 0.4 mg QPM PO 07/17/24 18:00 07/17/24 01:45 DC Ketorolac Tromethamine (Toradol Injection) 15 mg Q6HPRN PRN IV SEVERE PAIN (7-10 PAIN SCALE) 07/17/24 01:45 07/17/24 01:45 DC Ketorolac Tromethamine (Toradol Injection) 15 mg Q6HPRN PRN IV SEVERE PAIN (7-10 PAIN SCALE) 07/17/24 02:00 07/22/24 01:44 Hold Sodium Chloride 1,000 ml @ 100 mls/hr Q10H IV 07/17/24 02:00 07/17/24 07:30 Tamsulosin HCl (Flomax) 0.4 mg QPM PO 07/17/24 18:00 Ergocalciferol (Vitamin D 50,000 Unit) 50,000 unit Q7D PO 07/17/24 06:45 07/17/24 06:52 Review of Systems Constitutional: denies: chills, diaphoresis, fatigue, fever, malaise, sweats, weakness, others EENTM: denies: blurred vision, double vision, ear bleeding, ear discharge, ear drainage, ear pain, ear ringing, eye pain, eye redness, hearing loss, mouth pain, mouth swelling, nasal discharge, nose bleeding, nose congestion, nose pain, photophobia, tearing, throat pain, throat swelling, voice changes, others Respiratory: denies: cough, hemoptysis, orthopnea, SOB at rest, shortness of breath, SOB with excertion, stridor, wheezing, others Cardiovascular: denies: chest pain, dizzy spells, diaphoresis, Dyspnea on exertion, edema, irregular heart beat, left arm pain, lightheadedness, palpitations, PND, syncope, others Gastrointestinal: reports: abdominal pain; denies: abdomen distended, blood streaked bowels, constipated, diarrhea, dysphagia, difficulty swallowing, hematemesis, melena, nausea, poor appetite, poor fluid intake, rectal bleeding, rectal pain, vomiting, others Genitourinary: reports: hematuria; denies: burning, dysuria, flank pain, frequency, incontinence, penile discharge, penile sore, pain, testicle pain, testicle swelling, urgency, others Neurological: denies: dizziness, fainting, headache, left sided numbness, left sided weakness, numbness, paresthesia, pre-existing deficit, right sided numbness, right sided weakness, seizure, speech problems, tingling, tremors, weakness, others Musculoskeletal: reports: back pain; denies: gout, joint pain, joint swelling, muscle pain, muscle stiffness, neck pain, others Integumetry: denies: bruises, change in color, change in hair/nails, dryness, laceration, lesions, lumps, rash, wounds, others Allergic/Immunocompromised: denies: Difficulty Healing, Frequent Infections, Hives, Itching, others Hematologic/Lymphatic: denies: anemia, blood clots, easy bleeding, easy bruising, swollen glands, others Endocrine: denies: excessive hunger, excessive sweating, excessive thirst, excessive urination, flushing, intolerance to cold, intolerance to heat, unexplained weight gain, unexplained weight loss, others Psychiatric: denies: anxiety, bipolar disorder, depression, hopeless, panic disorder, schizophrenia, sleepless, suicidal, others All Other Systems: Reviewed and Negative Vital Signs Vital Signs Date Time Temp Pulse Resp B/P (MAP) Pulse Ox O2 Delivery O2 Flow Rate FiO2 07/17/24 10:22 60 22 131/73 07/17/24 05:00 98.5 98 98.5 07/17/24 03:06 Room Air* 0 21 Physical Exam General Appearance: No Apparent Distress HEENT: Other (Pupils and face symmetric. Moist mucous membranes.) Neck: Full Range of Motion, Normal Inspection Respiratory: Lungs Clear, No Accessory Muscle Use, No Respiratory Distress, Normal Breath Sounds Cardiovascular: No Edema, No JVD, Regular Rate/Rhythm Breast Exam: Deferred Gastrointestinal: Soft, Suprapubic, Tenderness Genitalia: Deferred Pelvic: Deferred Rectal: Deferred Extremities: Normal inspection, Normal range of motion, Non-tender, No pedal edema Neurologic: Alert (Oriented x4), Normal Affect, Normal Mood, Other (Ambulatory without difficulty) Cerebellar Function: NOT DONE Reflexes: NOT DONE Skin: Dry, Normal Color, Warm Lymphatic: NOT DONE Labs/Diagnostic Data Labs Test 07/17/24 04:36 07/16/24 18:32 07/16/24 16:32 Range/Units White Blood Count 11.3 H 4.4-10.8 10^3/uL Red Blood Count 4.63 4.5-5.90 10^6/uL Hemoglobin 14.7 13.5-17.5 g/dL Hematocrit 42.1 # 41.0-53.0 % Mean Corpuscular Volume 90.8 80.0-100.0 fL Mean Corpuscular Hemoglobin 31.7 28.0-32.0 pg Mean Corpuscular Hemoglobin Concent 34.9 32.0-36.0 g/dL Red Cell Distribution Width 12.9 11.8-14.3 % Platelet Count 295 140-450 10^3/uL Mean Platelet Volume 8.5 6.9-10.8 fL Neutrophils (%) (Auto) 64.2 37.0-80.0 % Lymphocytes (%) (Auto) 22.4 10.0-50.0 % Monocytes (%) (Auto) 10.8 0.0-12.0 % Eosinophils (%) (Auto) 1.7 0.0-7.0 % Basophils (%) (Auto) 0.9 0.0-2.0 % Neutrophils # (Auto) 7.2 1.6-8.6 10 ^3/uL Lymphocytes # (Auto) 2.5 0.4-5.4 10 ^3/uL Monocytes # (Auto) 1.2 0-1.3 10 ^3/uL Eosinophils # (Auto) 0.2 0-0.8 10 ^3/uL Basophils # (Auto) 0.1 0-0.2 10 ^3/uL Nucleated Red Blood Cells 0.0 % Sodium Level 141 136-145 mmol/L Potassium Level 4.1 3.5-5.1 mmol/L Chloride Level 107 98-107 mmol/L Carbon Dioxide Level 28 20-31 mmol/L Anion Gap 6 5-15 Blood Urea Nitrogen 12 9-23 mg/dL Creatinine 0.87 0.700-1.30 mg/dL Glomerular Filtration Rate Calc 117 >90 mL/min BUN/Creatinine Ratio 13.8 10.0-20.0 Serum Glucose 89 74-106 mg/dL Hemoglobin A1c 5.0 <5.7 % A1C Calcium Level 9.5 8.7-10.4 mg/dL Phosphorus Level 3.2 2.4-5.1 mg/dL Magnesium Level 1.9 1.6-2.6 mg/dL Total Bilirubin 0.4 0.2-1.0 mg/dL Direct Bilirubin 0.1 <0.3 mg/dL Aspartate Amino Transferase (AST) 19 13-40 U/L Alanine Aminotransferase (ALT) 28 7-40 U/L Alkaline Phosphatase 61 46-116 U/L Creatine Kinase 109 46-171 U/L Total Protein 6.8 5.7-8.2 g/dL Albumin 4.4 3.2-4.8 g/dL Triglycerides Level 171 H < 150 mg/dL Cholesterol Level 203 H < 200 mg/dL LDL Cholesterol 150 H < 100 mg/dL HDL Cholesterol 40 40-59 mg/dL Vitamin B12 Level 332 211-911 pg/mL Vitamin D 25-Hydroxy 13.0 L 30.0-100 ng/mL Thyroid Stimulating Hormone (TSH) 3.06 0.55-4.78 uIU/mL Prothrombin Time 10.8 9.3-11.8 sec Prothrombin Time INR 1.02 0.9-1.15 Activated Partial Thromboplast Time 28.8 24.5-34.5 SEC Urine Color Light-yellow Yellow Urine Clarity Clear Clear Urine pH 5.5 5.0-9.0 Urine Specific [place] 1.020 1.001-1.035 Urine Protein Negative Negative Urine Ketones Negative Negative Urine Blood 3+ H Negative /uL Urine Nitrite Negative Negative Urine Bilirubin Negative Negative Urine Urobilinogen Normal Negative mg/dL Urine Leukocyte Esterase Negative Negative /uL Urine RBC 2 0 - 3 /hpf Urine Microscopic WBC 2 0-3 /HPF Urine Squamous Epithelial Cells Few <5 /hpf Urine Bacteria Few H None Seen /hpf Urine Mucus Few None Seen Urine Glucose Normal Normal mg/dL Urine Opiates Screen Neg NEGATIVE Urine Fentanyl Screen Neg NEGATIVE Urine Barbiturates Screen Neg NEGATIVE Urine Phencyclidine Screen Neg NEGATIVE Urine Amphetamines Screen Neg NEGATIVE Urine Benzodiazepines Screen Neg NEGATIVE Urine Cocaine Screen Neg NEGATIVE Urine Cannabinoids Screen Pos NEGATIVE PATIENT: YOCASTA DEE ACCT: [id number] UNIT: [id number] : 1990 LOC: ER ROOM / BED: / AGE / SEX: 33 / M ADM STATUS: [facility] ER SERVICE [id number] ORDERING PHYSICIAN: VALENTINA RIOS MD PROCEDURE(s): ABPL - CT AB PEL WO CON-NO ORAL OR IV REASON: hematuria ORDER NUMBER(s): [id number], ACCESSION NUMBER(s): [id number] Exam: CT CT AB PEL WO CON-NO ORAL OR IV History: hematuria Comparison Study: None available at time of dictation. TECHNIQUE: Multidetector CT of the abdomen was performed from lung bases to pubic symphysis. Imaging was performed without IV contrast. Axial, coronal and sagittal multiplanar reformats were obtained from the axial data set by the technologist. Radiation Dose Information: CT Dose: CTDI volume is 25.7 mGy. Dose-length product is 1529.53 mGy*cm FINDINGS: Evaluation of solid organs is limited due to lack of intravenous contrast use. Findings: Lung Bases: No acute or significant lung base finding. Normal heart size. No pleural or pericardial effusion. Liver: The liver is normal in size. No focal lesions. Gallbladder and Biliary Tree: Unremarkable Spleen: Unremarkable Pancreas: The pancreas is grossly normal in appearance. Adrenal Glands: Unremarkable Kidneys: Kidneys are grossly normal without calculi or hydronephrosis. No nephrolithiasis or hydronephrosis. No ureteral calculi. No bladder calculi. Bladder: Grossly unremarkable for degree of distention. Bowel: The stomach is grossly normal in appearance. Small bowel and colon are normal in caliber and distribution. The appendix is not visualized; however, no secondary findings of acute appendicitis identified. Ascites: Absent Lymphadenopathy: No mesenteric, retroperitoneal or periportal lymphadenopathy. Abdominal Wall and Mesentery: Unremarkable. Vasculature: The visualized abdominal aorta is normal in size and caliber. E valuation of abdominal and pelvic vessels is limited due to lack of intravenous contrast. Pelvic Organs: Unremarkable Musculoskeletal: No aggressive focal bony lesions, acute fractures or dislocation. Soft tissues: Unremarkable IMPRESSION: 1. No nephrolithiasis no hydronephrosis. 2. No ureteral calculi or bladder calculi. 3. No calcified gallstones. 4. No findings of bowel obstruction. Radiation optimization: All CT scans at this facility use at least one of these dose optimization techniques: automated exposure control mA and/or kV adjustment per patient size (includes targeted exams where dose is matched to clinical indication) or iterative reconstruction. ATED BY: TANGELA PERRY Jr., DO DICTATED DATE/TIME: 07/16/241923 SIGNED BY: TANGELA PERRY Jr., SIGNED DATE/TIME: 07/16/241923 CC: Assessment Microhematuria Gross hematuria LBP Urinary retention Urethral stricture Plan/Recommendation Cystoscopy with DVIU and Vale catheter placement Plan discussed with: Patient LENNY SCHWARZ MD Jul 17, 2024 14:43
[2024-07-17] MEDS: TAMSULOSIN HYDROCHLORIDE 0.4 MG CAP PO SCH (17:32)
[2024-07-17] MEDS ORDERED: TAMSULOSIN HYDROCHLORIDE 0.4 MG CAP PO SCH (18:00)
--- NOTE | 2024-07-17 19:24 | DVHPNRES ---
Progress Note Date Seen: Jul 17, 2024 Resident Creating Document: MARGARITO RODRIGUEZ RESIDENT Has the PT tested + for MRSA If YES, has PT been informed?: No Medical Necessity Reason Pt with a Central, PICC or Fol: No Medical Necessity Reason History of Present Illness James Laboy is a 33-year-old male patient who presents to the ED with chief complaint of hematuria and right flank pain. Per patient he has constant dribbling from penis even when he is not urinating. The pain actually starts from his penile area and goes up to his right flank. Denies fever, chills, palpitation, syncope, chest pain, dyspnea, nausea, vomiting, diarrhea, dysuria, sick contacts, recent travel and motor or sensory deficits. Past medical history: Hypertension, kidney stones diagnosed approximately three years ago with requirement of stent placement and removal and two sessions of lithotripsy, patient describes probable urethral stricture (says that they could not place a baby catheter through his penis), he was evaluated by Dr. Guerra previously. Crohn's disease, benign small intestine tumor. 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 Father of stroke Social history: Lives in [place] with family. Ex tobacco abuse (approximately 1-2 cigarettes a day only for two years), per patient he stopped smoking alcohol three days ago. Denies current alcohol and other drug abuse Allergies: Ciprofloxacin, sulfa antibiotics, ibuprofen Home medication: Tylenol PN: 07/17/2024 Patient is a 33-year-old male with a past medical history of kidney stone 4 years ago status post instrumentation to remove the kidney stone. Since then, patient has been doing well no complaints until recently when patient is started noticing blood post urination. Patient mentioned that, 4 years ago when he had the kidney stone 1 of the urologist use an instrument to get the stone from his kidney in the past from his kidney down through his urethra and that has worked and he has been doing well. However,recently he realize that there is blood usually at the end of urination or sometimes mixed with it and also at the entrance of his urethral; sometimes urine is flying in different direction as though this a septum or stricture dividing the urethra meatus and that is causing him a lot of distress. Patient denied any fever chills nausea, vomiting, shortness of breaths or generalized feeling of unwell. He denies any fatigue as well he denied any bleeding disorders, or not on blood thinners, ever swimming in a [place] or traveling to any part of [place] and swimming in a river. Subjective Review of Systems Constitutional: Denies fever no chills no feeling of malaise or fatigue HEENT: Denies headache, ear pain, ear discharges, conjunctivitis, nasal discharge throat pain Cardiovascular: Denies chest pain, palpitation, orthopnea, PND, or pedal edema Respiratory: Denies shortness of breath, cough cough, sputum production, hemoptysis, GI: abdominal pain, Denies nausea, vomiting, diarrhea, hematemesis, hematochezia, : Denies frequency, urgency, hematuria, Endocrine: Denies unintentional weight gain or weight loss, feeling of hot flashes, Regulo: Denies easy bruising, bleeding disorders, epistaxis Musculoskeletal: Denies joint pains, muscle aches Psych: No evidence of depression, mariana, suicidal ideation Objective vital signs Vital Sign Date Time Temp Pulse Resp B/P (MAP) Pulse Ox O2 Delivery O2 Flow Rate FiO2 07/17/24 17:00 97.7 66 19 148/80 (102) 98 97.7 07/17/24 16:48 Room Air* 0 21 Total Intake and Output 07/16/24 07/16/24 07/17/24 15:00 23:00 07:00 Intake Total 1000 ml Balance 1000 ml medications Current Medications Medications Dose Ordered Sig/Rosendo Route Start Time Stop Time Status Last Admin Dose Admin Acetaminophen 650 mg Q6HP PRN PO 07/17/24 01:00 Ondansetron HCl 4 mg Q4HP PRN IV 07/17/24 01:00 07/17/24 03:49 4 MG Morphine Sulfate 2 mg Q4HPRN PRN IV 07/17/24 01:00 07/17/24 15:21 2 MG Ceftriaxone Sodium 50 ml @ 100 mls/hr DAILY@09 IV 07/17/24 09:00 07/17/24 11:28 100 MLS/HR Ketorolac Tromethamine 15 mg Q6HPRN PRN IV 07/17/24 02:00 07/22/24 01:44 Hold Sodium Chloride 1,000 ml @ 100 mls/hr Q10H IV 07/17/24 02:00 07/17/24 17:32 100 MLS/HR Tamsulosin HCl 0.4 mg QPM PO 07/17/24 18:00 Ergocalciferol 50,000 unit Q7D PO 07/17/24 06:45 07/17/24 06:52 50,000 UNIT Examination General Appearance: Alert, Oriented X3, Cooperative, No acute distress HEENT: Atraumatic, PERRLA, EOMI, Mucous membrane moist/pink Respiratory: Clear to auscultation, Normal air movement Cardiovascular: Regular rate, Normal S1, Normal S2, No murmurs, no chest wall tenderness Abdominal: NO distention, no tenderness, bowel sounds present, no scars noted Extremities: No clubbing, No cyanosis, No edema, Normal pulses, No tenderness/swelling Skin: No rashes, No breakdown, No significant lesion Neuro: Normal gait, Normal speech, Strength at 5/5 X4 ext, Normal tone, Sensation intact, Cranial nerves 3-12 NL, Reflexes 2+ Psych/Mental Status: Mental status NL, Mood NL laboratory and microbiology Laboratory Tests 07/17/24 04:36 Test 07/17/24 04:36 Range/Units Serum Glucose 89 74-106 mg/dL Problem List/Assessment/Plan Problem List/Assessment/Plan Assessment Possible Urethral stricture --> History of urethral instrumentation 4 years ago --> History of Kidney stones Rule out UTI vs bladder pathology --> Microhematuria --> Terminal/Gross hematuria/ --> Urology consult: Cystoscopy with DVIU and Vale catheter placement -->H& H stable Urinary retention --> obtain PVR Lower back pain --> Pain medication -->Tylenol Obesity grade 1 --> BMI: 31.7 Goal of care discussed for more than 15 minute: Full code Case and plan discussed with Dr. Holm Plan discussed with: Patient Date of Service: Jul 17, 2024 Billing Provider: VELASQUEZ HOLM MD Common Visit Codes: [id number] INP/OBS CARE(HIGH) MARGARITO RODRIGUEZ RESIDENT Jul 17, 2024 19:24 VELASQUEZ HOLM MD July 20, 2024 19:14
[2024-07-17] MEDS ORDERED: fentaNYL CITRATE 100 MCG/2 ML VL ONE (20:09)
[2024-07-17] MEDS ORDERED: SODIUM CHLORIDE LOCK 10 ML ONE (20:09)
[2024-07-17] MEDS ORDERED: MIDAZOLAM HCL 2MG/2ML 2ml VIAL (1mg/ml) ONE (20:09)
[2024-07-17] MEDS ORDERED: ONDANSETRON HCL 4 MG/2 ML VIAL ONE (20:09)
[2024-07-17] MEDS ORDERED: PROPOFOL 10 MG/ML 20 ML IV ONE (20:09)
[2024-07-17] MEDS ORDERED: ROCURONIUM 10MG/ML 10ML VIAL IV ONE (20:09)
[2024-07-17] MEDS ORDERED: ceFAZolin 2 GM/D5W50ml 50 ML IV ONE (20:57)
--- NOTE | 2024-07-17 21:15 | DVHNC2 ---
Procedure - OPERATIVE REPORT Pre-op. Diagnosis: Urethral Stricture Disease Post-op. Diagnosis: Same as pre-op diagnosis Operation: Cystoscopy with Direct Visual Internal Urethrotomy Vale catheter insertion Urethral dilation Anesthesia: General Indications: Patient with symptomatic urethral stricture process has urinary outlet obstruction. The indications, risks, complications, alternatives and benefits of cystoscopy with direct visual internal urethrotomy are discussed with patient. All questions were encouraged and answered. Patient is aware of specific risks/ complications including but not limited to infections, bleeding, recurrence of the condition requiring additional procedures and urinary incontinence. Patient consented and elected to proceed. Details of Procedure: After patient is taken to OR and appropriate anesthesia administered, area of the genitalia is prepped and draped in normal sterile fashion in the lithotomy position. Meatal stenosis was dilated with VBS to 24F. Next, 20F urethrotome sheath with 12 degrees lens and cold knife blade is used to access the urethra. Urethral stricture sites are identified and incisions at 12 O'Clock position are made to open the urethral channel. Bladder was accessed and guidewire is placed. Cystoscope is removed in entirety and a 18 F Division Order Technician tip catheter is placed over the guidewire and placed in the bladder. Patient tolerated the procedure well and was awakened before transporting to the safely. Specimens: Complications: None Findings: Vale to gravity x 4 weeks Notes: Patient will need to be instructed on self catheterization after Vale removal. LENNY SCHWARZ MD Jul 17, 2024 21:15
[2024-07-18] VITALS (7 sets, daily range): BP systolic 116–139; BP diastolic 57–78; PULSE 68–76; RESP 18–20; TEMP 37.1; O2SAT 95–97
[2024-07-18] MEDS: ACETAMINOPHEN 325 MG TAB PO SCH
[2024-07-18 11:44] LABS: Basophils # (auto) 0.1 10 ^3/uL (0-0.2); Basophils % (auto) 0.5 % (0.0-2.0); Eosinophils # (auto) 0.1 10 ^3/uL (0-0.8); Eosinophils % (auto) 1.1 % (0.0-7.0); Hematocrit 41.4 % (41.0-53.0); Hemoglobin 14.3 g/dL (13.5-17.5); Lymphocytes # (auto) 1.7 10 ^3/uL (0.4-5.4); Lymphocytes % (auto) 14.5 % (10.0-50.0); Mean Corpuscular Hemoglobin 31.7 pg (28.0-32.0); Mean Corpuscular Hgb Conc. 34.4 g/dL (32.0-36.0); Monocytes # (auto) 1.2 10 ^3/uL (0-1.3); Monocytes % (auto) 9.9 % (0.0-12.0); Neutrophils # (auto) 8.7 10 ^3/uL (1.6-8.6); Nucleated Red Blood Cells % 0.1 %; Platelet Count (auto) 261 10^3/uL (140-450); Red Cell Distribution Width 13.2 % (11.8-14.3); White Blood Cell 11.7 10^3/uL (4.4-10.8)
[2024-07-18 11:57] LABS: Potassium 3.8 mmol/L (3.5-5.1); Sodium 141 mmol/L (136-145)
[2024-07-18 11:58] LABS: Anion Gap 6 (5-15); Carbon Dioxide 25 mmol/L (20-31)
[2024-07-18 11:59] LABS: Calcium 9.6 mg/dL (8.7-10.4)
[2024-07-18 12:04] LABS: BUN/Creatinine Ratio 9.2 (10.0-20.0)
[2024-07-18 12:06] LABS: Blood Urea Nitrogen 7 mg/dL (9-23); Chloride 110 mmol/L (98-107); Glucose 108 mg/dL (74-106)
[2024-07-18] MEDS ORDERED: TAMS0.4C39 PO (15:56)
[2024-07-18] MEDS ORDERED: CIP500T PO (15:56)
[2024-07-18] MEDS ORDERED: ACET-1882 PO (15:56)
--- NOTE | 2024-07-18 16:15 | DVHDSRES ---
Discharge Summary Date of Admission Resident Creating Document: MARGARITO RODRIGUEZ RESIDENT Jul 17, 2024 at 00:57 Date of Discharge: Jul 18, 2024 Admitting Diagnosis Gross hematuria Labs/Diagnostic Data: PATIENT: JAMES DEE ACCT: [id number] UNIT: [id number] : 1990 LOC: ER ROOM / BED: / AGE / SEX: 33 / M ADM STATUS: [facility] ER SERVICE [id number] ORDERING PHYSICIAN: REBEL OBRIEN PROCEDURE(s): KIDUS - KIDNEY REASON: Hematuria ORDER NUMBER(s): [id number], ACCESSION NUMBER(s): [id number] KIDNEY HISTORY: Hematuria COMPARISON: None TECHNIQUE: Real-time ultrasonography of the kidneys and urinary bladder was performed. FINDINGS: Right kidney measures 10.8 cm in length. Left kidney not fully visualized due to patient body habitus. No evidence of hydronephrosis or sonographically evident calculus or mass. Urinary bladder is incompletely distended. Incidental note of increased hepatic echogenicity IMPRESSION: 1. No evidence of hydronephrosis or evident calculus. Poor visualization of the left kidney. 2. Incidental increased echogenicity of the liver suggesting fibrofatty hepatocellular disease, most commonly hepatic steatosis. ATED BY: GIUSEPPE HILL MD DICTATED DATE/TIME: 07/17/244 PATIENT: JAMES DEE ACCT: [id number] UNIT: [id number] : 1990 LOC: ER ROOM / BED: / AGE / SEX: 33 / M ADM STATUS: [facility] ER SERVICE [id number] ORDERING PHYSICIAN: VALENTINA RIOS MD PROCEDURE(s): ABPL - CT AB PEL WO CON-NO ORAL OR IV REASON: hematuria ORDER NUMBER(s): [id number], ACCESSION NUMBER(s): [id number] Exam: CT CT AB PEL WO CON-NO ORAL OR IV History: hematuria Comparison Study: None available at time of dictation. TECHNIQUE: Multidetector CT of the abdomen was performed from lung bases to pubic symphysis. Imaging was performed without IV contrast. Axial, coronal and sagittal multiplanar reformats were obtained from the axial data set by the technologist. Radiation Dose Information: CT Dose: CTDI volume is 25.7 mGy. Dose-length product is 1529.53 mGy*cm FINDINGS: Evaluation of solid organs is limited due to lack of intravenous contrast use. Findings: Lung Bases: No acute or significant lung base finding. Normal heart size. No pleural or pericardial effusion. Liver: The liver is normal in size. No focal lesions. Gallbladder and Biliary Tree: Unremarkable Spleen: Unremarkable Pancreas: The pancreas is grossly normal in appearance. Adrenal Glands: Unremarkable Kidneys: Kidneys are grossly normal without calculi or hydronephrosis. No nephrolithiasis or hydronephrosis. No ureteral calculi. No bladder calculi. Bladder: Grossly unremarkable for degree of distention. Bowel: The stomach is grossly normal in appearance. Small bowel and colon are normal in caliber and distribution. The appendix is not visualized; however, no secondary findings of acute appendicitis identified. Ascites: Absent Lymphadenopathy: No mesenteric, retroperitoneal or periportal lymphadenopathy. Abdominal Wall and Mesentery: Unremarkable. Vasculature: The visualized abdominal aorta is normal in size and caliber. Evaluation of abdominal and pelvic vessels is limited due to lack of intravenous contrast. Pelvic Organs: Unremarkable Musculoskeletal: No aggressive focal bony lesions, acute fractures or dislocation. Soft tissues: Unremarkable IMPRESSION: 1. No nephrolithiasis no hydronephrosis. 2. No ureteral calculi or bladder calculi. 3. No calcified gallstones. 4. No findings of bowel obstruction. Radiation optimization: All CT scans at this facility use at least one of these dose optimization techniques: automated exposure control mA and/or kV adjustment per patient size (includes targeted exams where dose is matched to clinical indication) or iterative reconstruction. ATED BY: TANGELA PERRY Jr., DO DICTATED DATE/TIME: 07/16/241923 Laboratory Results Test 07/18/24 11:11 07/17/24 04:36 07/16/24 18:32 07/16/24 16:32 White Blood Count 11.7 10^3/uL (4.4-10.8) Red Blood Count 4.50 10^6/uL (4.5-5.90) Hemoglobin 14.3 g/dL (13.5-17.5) Hematocrit 41.4 % (41.0-53.0) Mean Corpuscular Volume 92.0 fL (80.0-100.0) Mean Corpuscular Hemoglobin 31.7 pg (28.0-32.0) Mean Corpuscular Hemoglobin Concent 34.4 g/dL (32.0-36.0) Red Cell Distribution Width 13.2 % (11.8-14.3) Platelet Count 261 10^3/uL (140-450) Mean Platelet Volume 8.3 fL (6.9-10.8) Neutrophils (%) (Auto) 74.0 % (37.0-80.0) Lymphocytes (%) (Auto) 14.5 % (10.0-50.0) Monocytes (%) (Auto) 9.9 % (0.0-12.0) Eosinophils (%) (Auto) 1.1 % (0.0-7.0) Basophils (%) (Auto) 0.5 % (0.0-2.0) Neutrophils # (Auto) 8.7 10 ^3/uL (1.6-8.6) Lymphocytes # (Auto) 1.7 10 ^3/uL (0.4-5.4) Monocytes # (Auto) 1.2 10 ^3/uL (0-1.3) Eosinophils # (Auto) 0.1 10 ^3/uL (0-0.8) Basophils # (Auto) 0.1 10 ^3/uL (0-0.2) Nucleated Red Blood Cells 0.1 % Sodium Level 141 mmol/L (136-145) Potassium Level 3.8 mmol/L (3.5-5.1) Chloride Level 110 mmol/L (98-107) Carbon Dioxide Level 25 mmol/L (20-31) Anion Gap 6 (5-15) Blood Urea Nitrogen 7 mg/dL (9-23) Creatinine 0.76 mg/dL (0.700-1.30) Glomerular Filtration Rate Calc 122 mL/min (>90) BUN/Creatinine Ratio 9.2 (10.0-20.0) Serum Glucose 108 mg/dL (74-106) Calcium Level 9.6 mg/dL (8.7-10.4) Hemoglobin A1c 5.0 % A1C (<5.7) Phosphorus Level 3.2 mg/dL (2.4-5.1) Magnesium Level 1.9 mg/dL (1.6-2.6) Total Bilirubin 0.4 mg/dL (0.2-1.0) Direct Bilirubin 0.1 mg/dL (<0.3) Aspartate Amino Transferase (AST) 19 U/L (13-40) Alanine Aminotransferase (ALT) 28 U/L (7-40) Alkaline Phosphatase 61 U/L (46-116) Creatine Kinase 109 U/L (46-171) Total Protein 6.8 g/dL (5.7-8.2) Albumin 4.4 g/dL (3.2-4.8) Triglycerides Level 171 mg/dL (< 150) Cholesterol Level 203 mg/dL (< 200) LDL Cholesterol 150 mg/dL (< 100) HDL Cholesterol 40 mg/dL (40-59) Vitamin B12 Level 332 pg/mL (211-911) Vitamin D 25-Hydroxy 13.0 ng/mL (30.0-100) Thyroid Stimulating Hormone (TSH) 3.06 uIU/mL (0.55-4.78) Prothrombin Time 10.8 sec (9.3-11.8) Prothrombin Time INR 1.02 (0.9-1.15) Activated Partial Thromboplast Time 28.8 SEC (24.5-34.5) Urine Color Light-yellow (Yellow) Urine Clarity Clear (Clear) Urine pH 5.5 (5.0-9.0) Urine Specific [place] 1.020 (1.001-1.035) Urine Protein Negative (Negative) Urine Ketones Negative (Negative) Urine Blood 3+ /uL (Negative) Urine Nitrite Negative (Negative) Urine Bilirubin Negative (Negative) Urine Urobilinogen Normal mg/dL (Negative) Urine Leukocyte Esterase Negative /uL (Negative) Urine RBC 2 /hpf (0 - 3) Urine Microscopic WBC 2 /HPF (0-3) Urine Squamous Epithelial Cells Few /hpf (<5) Urine Bacteria Few /hpf (None Seen) Urine Mucus Few (None Seen) Urine Glucose Normal mg/dL (Normal) Urine Opiates Screen Neg (NEGATIVE) Urine Fentanyl Screen Neg (NEGATIVE) Urine Barbiturates Screen Neg (NEGATIVE) Urine Phencyclidine Screen Neg (NEGATIVE) Urine Amphetamines Screen Neg (NEGATIVE) Urine Benzodiazepines Screen Neg (NEGATIVE) Urine Cocaine Screen Neg (NEGATIVE) Urine Cannabinoids Screen Pos (NEGATIVE) Other Laboratory Tests 07/18/24 11:11 Brief Hx & Hospital Course: History of Present Illness James Dee is a 33-year-old male patient who presents to the ED with chief complaint of hematuria and right flank pain. Per patient he has constant dribbling from penis even when he is not urinating. The pain actually starts from his penile area and goes up to his right flank. Denies fever, chills, palpitation, syncope, chest pain, dyspnea, nausea, vomiting, diarrhea, dysuria, sick contacts, recent travel and motor or sensory deficits. Past medical history: Hypertension, kidney stones diagnosed approximately three years ago with requirement of stent placement and removal and two sessions of lithotripsy, patient describes probable urethral stricture (says that they could not place a baby catheter through his penis), he was evaluated by Dr. Guerra previously. Crohn's disease, benign small intestine tumor. 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 Father of stroke Social history: Lives in [place] with family. Ex tobacco abuse (approximately 1-2 cigarettes a day only for two years), per patient he stopped smoking alcohol three days ago. Denies current alcohol and other drug abuse Allergies: Ciprofloxacin, sulfa antibiotics, ibuprofen Home medication: Tylenol Brief Hospital Course Patient is a 33-year-old male with a past medical history of kidney stone 4 years ago status post instrumentation to remove the kidney stone. Since then, patient has been doing well no complaints until recently when patient is started noticing blood post urination. Patient mentioned that, 4 years ago when he had the kidney stone 1 of the urologist use an instrument to get the stone from his kidney in the past from his kidney down through his urethra and that has worked and he has been doing well. However, recently he realize that there is blood usually at the end of urination or sometimes mixed with it and also at the entrance of his urethral; sometimes urine is flying in different direction as though this a septum or stricture dividing the urethra meatus and that is causing him a lot of distress. Patient denied any fever chills nausea, vomiting, shortness of breaths or generalized feeling of unwell. He denies any fatigue, any bleeding disorders, or use of blood thinners. ever swimming in a [place] or traveling to any part of [place] and swimming in a river. Urolology consulted and performed cystoscopy with Direct Visual Internal Urethrotomy for symptomatic urethral stricture process has urinary outlet obstruction. Procedure went well without any complications. Patient will be in baker to gravity for four weeks. Antibiotics for post procedure coverage and pain management. Patient has been advised to follow up with the urology in 2 weeks. Review of system Constitutional: Denies fever no chills no feeling of malaise or fatigue HEENT: Denies headache, ear pain, ear discharges, conjunctivitis, nasal discharge throat pain Cardiovascular: Denies chest pain, palpitation, orthopnea, PND, or pedal edema Respiratory: Denies shortness of breath, cough cough, sputum production, hemoptysis, GI: Denies nausea, vomiting, diarrhea, hematemesis, hematochezia, : Denies frequency, urgency,Mild Swollen penis Endocrine: Denies unintentional weight gain or weight loss, feeling of hot flashes, Regulo: Denies easy bruising, bleeding disorders, epistaxis Musculoskeletal: Denies joint pains, muscle aches Psych: No evidence of depression, mariana, suicidal ideation Examination General Appearance: Alert, Oriented X3, Cooperative, No acute distress HEENT: Atraumatic, PERRLA, EOMI, Mucous membrane moist/pink Respiratory: Clear to auscultation, Normal air movement Cardiovascular: Regular rate, Normal S1, Normal S2, No murmurs, no chest wall tenderness Abdominal: NO distention, no tenderness, bowel sounds present, no scars noted, : tender penis Extremities: No clubbing, No cyanosis, No edema, Normal pulses, No tenderness/swelling Skin: No rashes, No breakdown, No significant lesion Neuro: Normal gait, Normal speech, Strength at 5/5 X4 ext, Normal tone, Sensation intact, Cranial nerves 3-12 NL, Reflexes 2+ Psych/Mental Status: Mental status NL, Mood NL Diagnoses symptomatic urethral stricture, urinary outlet obstruction. Microhematuria, Gross hematuria Urinary retention Lower back pain Obesity grade 1, BMI: 31.7 Discharge plan Discharge home Baker to gravity for four weeks Educated on how to self catheterize, instructed on self catheterization after Baker removal. Tylenol for pain prn Ciprofloxacin for 7 days Follow up at the discharge clinic in 7 days Follow with Urology in 14 days Return to work in 2 weeks Discharge plan Discussed with Dr. Mihai Consults/Reason for consult Reason for Consultation: Hematuria/urinary retention x 3 days Operations or Procedures PATIENT: JAMES DEE ACCT: [id number] : 1990 LOC: [facility] ROOM/ROOM: 0248-B AGE/SEX: 33/M ADM STATUS: ADM IN ADM DATE: 07/17/24 UNIT: [id number] HEALTH INFORMATION MANAGEMENT PROCEDURE NOTE - [facility] :[id number] Signed ORDERING PHYSICIAN: PROCEDURE(s): ORDER NUMBER(s): , ACCESSION NUMBER(s): Procedure - OPERATIVE REPORT Pre-op. Diagnosis: Urethral Stricture Disease Post-op. Diagnosis: Same as pre-op diagnosis Operation: Cystoscopy with Direct Visual Internal Urethrotomy Baker catheter insertion Urethral dilation Anesthesia: General Indications: Patient with symptomatic urethral stricture process has urinary outlet obstruction. The indications, risks, complications, alternatives and benefits of cystoscopy with direct visual internal urethrotomy are discussed with patient. All questions were encouraged and answered. Patient is aware of specific risks/complications including but not limited to infections, bleeding, recurrence of the condition requiring additional procedures and urinary incontinence. Patient consented and elected to proceed. Details of Procedure: After patient is taken to OR and appropriate anesthesia administered, area of the genitalia is prepped and draped in normal sterile fashion in the lithotomy position. Meatal stenosis was dilated with VBS to 24F. Next, 20F urethrotome sheath with 12 degrees lens and cold knife blade is used to access the urethra. Urethral stricture sites are identified and incisions at 12 O'Clock position are made to open the urethral channel. Bladder was accessed and guidewire is placed. Cystoscope is removed in entirety and a 18 F Glass Artist tip catheter is placed over the guidewire and placed in the bladder. Patient tolerated the procedure well and was awakened before transporting to the safely. Specimens: Complications: None Findings: Baker to gravity x 4 weeks Notes: Patient will need to be instructed on self catheterization after Baker removal. LENNY SCHWARZ MD Jul 17, 2024 21:15 DICTATED BY: LENNY SCHWARZ MD DICATED DATE/TIME: 07/17/242114 Condition at Discharge: Good Final Diagnosis/Problems List Urethral stricture Microhematuria Gross hematuria/ Urinary retention Lower back pain Obesity grade 1,BMI: 31.7 Discharge Disposition: Home Discharge Instruct/Medications Diet: Regular Activity: No Restrictions, As Tolerated Follow Up/Referral: 7days at the Discharge clinic 14 days at Urology clinic Medications: Pain medication Discharge Statement: "Patient was advised to return to the ER or call 911 if any headaches, dizziness, shortness of breath, chest pain, abdominal pain, bleeding, fevers, or worsening of medical condition. Patient was counseled about treatment plan, medications, possible side effects, patientverbalized understanding. All questions were answered to the best of my ability. This discharge took greater then 30 minutes in planning, reviewing documentation, counseling the patient, and discussing with other team members." ASSESSMENT ASSESSMENT Assessment Urethral stricture Microhematuria Gross hematuria/ Urinary retention Lower back pain Obesity grade 1,BMI: 31.7 Date of Service: Jul 18, 2024 Billing Provider: VELASQUEZ BERGERON MD Common Visit Codes: [id number]/[id number] DISCH DAY >30min MARGARITO RODRIGUEZ RESIDENT Jul 18, 2024 16:15 VELASQUEZ BERGERON MD July 20, 2024 19:18
== END 2024-07-18 18:45 | disposition home or self-care (01) | DRG 468 ==
LOC: ER 16:06 → OVERFLOW 07-17 00:57 → ER 07-17 01:04 → EAST 07-17 16:19
PROVIDERS: ADMIT Student in an Organized Health Care Education/Training Program; ATTEND Urology
PROC: 0T7D8ZZ Dilation of Urethra, Via Natural or Artificial Opening Endoscopic (ICD-10-PCS; principal; 2024-07-17 20:38)
DX: N35.911 Unspecified urethral stricture, male, meatal (principal); E66.811 Obesity, class 1; M54.9 Dorsalgia, unspecified; N39.0 Urinary tract infection, site not specified; Z87.442 Personal history of urinary calculi; Z82.49 Family history of ischemic heart disease and other diseases of the circulatory system; Z88.2 Allergy status to sulfonamides; Z88.8 Allergy status to other drugs, medicaments and biological substances; Z79.899 Other long term (current) drug therapy; Z68.31 Body mass index [BMI] 31.0-31.9, adult
CPT/HCPCS: 36415; 74176; 76775; 80048; 80061; 80076; 80307; 81001; 82306; 82550; 82607; 83036; 83735; 84100; 84443; 85025; 85610; 85730; 87086; 96365; 96375; A4344; G0378; J1885; J2250; J2405; J2704

== ENCOUNTER 2024-07-20 14:05 | Emergency (ER) | payer MEDICAID ==
[~2024-07-20] VITALS: Ht 182.9 cm; Wt 139.4 kg
[~2024-07-20 14:05] MED LIST changes: +ACET-1304 PO; +ACET-1882 PO; +CEPH500C PO; +CIP500T PO; +IBUP-1455 PO; +PHEN-1045 PO; +TAMS0.4C39 PO
--- NOTE | 2024-07-20 15:13 | ED.PDOC ---
General HPI Comments 33-year-old male presents with a chief complaint of blood coming from his urethra s/p Vale catheter placement x 2 days ago. Patient reports that 2 days ago, Dr. Ramires placed a Vale catheter in and he has been urinating very frequently. Patient mentions that he has been having pus, discharge, and blood coming from the urethral meatus. Patients urine is normal in color. Patient is currently on antibiotics. PMHx: Kidney Stones PSHx: Testicle Distention Surgery Allergies: Cipro, Ibuprofen, Sulfa Antibiotics Benoit: HPI: Poor Historian. REVIEW OF SYSTEMS: CONSTITUTIONAL: Denies acute: fever, diaphoresis, chills, HEAD: Denies acute: headache, photophobia Eyes: Denies acute: Double vision, vision loss, eye pain, eye discharge. EARS: Denies acute: tinnitus, hearing loss, ear discharge, ear pain, THROAT: Denies acute: sore throat, swelling, difficulty swallowing , pain with swallowing, change in voice. NECK: Denies acute: neck pain, neck swelling, stiff neck. HEART: Denies acute : chest pain, palpitations, LUNGS: Denies acute: SOB, wheezing, cough, hemoptysis ABDOMEN: Denies acute: Nausea, Vomiting, diarrhea, melena , hematemesis, hematochezia SKIN: Denies acute: rash, redness, lesions, itchiness. EXTREMITIES: Denies acute: calf pain, numbness, tingling, weakness, denies pain in extremity. Denies acute: Low back pain. Neuro: Denies acute: focal neurological deficit, motor or sensory focal neurological deficit, tremors, seizure like activity, confusion, dizziness, change in mental status, loss of bowel or bladder function, cauda equina like symptoms. : Denies acute: PSYCH: Denies acute: hallucination, suicidal ideation, homicidal ideation. PHYSICAL EXAM: General: ----evis-ea-lcpmpvmm----acute distress, awake and alert. Head: normocephalic, atraumatic. Neck: supple, trachea is midline, no swelling. Throat: Normal phonation. Eyes:, no erythema, no purulent discharge, no proptosis, no icterus. Heart: regular rate, regular rhythm, no significant murmur appreciated. Lungs: no apparent respiratory distress, Able to speak in full sentences. No wheezing, no rhonchi, no crackles. No stridors Clear to auscultation bilaterally. Abdomen: Suprapubic tender to palpation, non distended, soft, no guarding, no rebound, + bowel sounds. : Normal appearing external male genitalia circumcised. No apparent bleeding or foul discharge. Neuro: Awake, Alert, oriented to name, self, situation, follows commands GCS=15. Speech is normal. Skin: no petechia, no purpura, no cyanosis, non-pale, not jaundice. Lower extremities: --no - Pitting edema no deformity, no focal swelling, no calf TTP. Makes eye contact. moves all four extremities. Face: no apparent facial droop. CVA tenderness to percussion bilaterally. Ambulating in the ED independently. ED COURSE: Chief Complaint: Urinary Time Seen by MD: 14:52 Primary Care Provider: NONE Reviewed notes: Nurses Notes, Medications, Allergies Allergies: Coded Allergies: Ciprofloxacin (Verified Allergy, Severe, RASH, 07/17/17) Ibuprofen (Verified Allergy, Severe, RASH, 07/17/17) Sulfa Antibiotics (Verified Allergy, Severe, RASH, 07/17/17) Nitrofurantoin (Verified Allergy, Unknown, 07/20/24) Home Meds Active Scripts Tamsulosin Hcl (Tamsulosin Hcl) 0.4 Mg Cap, 1 CAP PO DAILY, #30 CAP 0 Refills Prov:MARGARITO RODRIGUEZ 07/18/24 Ciprofloxacin Hydrochloride (Ciprofloxacin HCl) 500 Mg Tab, 500 MG PO BID for 7 Days, #14 TAB Prov:MARGARITO RODRIGUEZ 07/18/24 Acetaminophen (Acetaminophen) 325 Mg Tab, 650 MG PO Q6HP for 30 Days, #240 TAB Prov:MARGARITO RODRIGUEZ 07/18/24 Phenazopyridine HCl (Phenazopyridine Hydrochol) 200 Mg Tab, 200 MG PO TID PRN, #9 TAB Prn urinary pain Prov:VALENTINA RIOS MD 07/16/24 Ibuprofen Micronized (Ibuprofen) 800 Mg Tab, 800 MG PO Q8HP PRN, #30 TAB Prn fever or pain. Take with food. Prov:VALENTINA RIOS MD 07/16/24 Acetaminophen (Tylenol Extra Strength) 500 Mg Tab, 1000 MG PO Q6HP PRN, #30 TAB Prn fever or pain Prov:VALENTINA RIOS MD 07/16/24 Cephalexin Monohydrate (Cephalexin) 500 Mg Cap, 1 CAP PO QID for 10 Days, #40 CAP Prov:VALENTINA RIOS MD 07/16/24 Tamsulosin Hcl (Flomax) 0.4 Mg Cap, 0.4 MG PO QPM, #7 CAP Prov:ERIKA ORTIZ MD 07/20/17 Information Source: Patient Past Medical History PAST MEDICAL HISTORY: Kidney Stones Surgical History (Other): Testicle Surgery Family History Family History: No family hx of HTN Social History Smoker: Non-Smoker Alcohol: Denies ETOH Use Drugs: Marijuana Lives In: Home Was a procedure done? Was a procedure done?: No Differential Diagnosis Kidney stone (Female): N/A Kidney stone (Male): Other (Flank Pain;DDX include Nephrolethiasis, obstructive uropathy, kidney cancer, renal infarct, intraabdominal neoplasm, lower lobe pneumonia, retroperitoneal hemorrhage, pancreatitis, aneurysm, dissection, musculoskeletal, rib contusion/trauma, hematoma, PYLONEPHRITIS, muscle strain, spinal disease. IN A FEMALE) Urinary Problem (Male): Bladder Outlet, Bladder Obstruction, Epididymitis, Prostatitis, Plelonephritis, Post op Complications, Renal Failure, Urethritis, Urinary Retention, Urolithiasis, UTI, Other (STD) X-Ray, Labs, Meds, VS Vital Signs Date Time Temp Pulse Resp B/P (MAP) Pulse Ox O2 Delivery O2 Flow Rate FiO2 07/20/24 19:45 98.6 92 16 134/84 (101) 98 98.6 07/20/24 19:45 Room Air* 0 21 07/20/24 14:45 98.2 92 16 134/84 (101) 95 98.2 Lab Test 07/20/24 15:25 07/20/24 14:49 Range/Units White Blood Count 10.1 4.4-10.8 10^3/uL Red Blood Count 5.28 4.5-5.90 10^6/uL Hemoglobin 17.0 # 13.5-17.5 g/dL Hematocrit 48.3 # 41.0-53.0 % Mean Corpuscular Volume 91.5 80.0-100.0 fL Mean Corpuscular Hemoglobin 32.2 H 28.0-32.0 pg Mean Corpuscular Hemoglobin Concent 35.2 32.0-36.0 g/dL Red Cell Distribution Width 13.1 11.8-14.3 % Platelet Count 284 140-450 10^3/uL Mean Platelet Volume 8.2 6.9-10.8 fL Neutrophils (%) (Auto) 62.6 37.0-80.0 % Lymphocytes (%) (Auto) 23.8 10.0-50.0 % Monocytes (%) (Auto) 10.7 0.0-12.0 % Eosinophils (%) (Auto) 1.9 0.0-7.0 % Basophils (%) (Auto) 1.0 0.0-2.0 % Neutrophils # (Auto) 6.3 1.6-8.6 10 ^3/uL Lymphocytes # (Auto) 2.4 0.4-5.4 10 ^3/uL Monocytes # (Auto) 1.1 0-1.3 10 ^3/uL Eosinophils # (Auto) 0.2 0-0.8 10 ^3/uL Basophils # (Auto) 0.1 0-0.2 10 ^3/uL Nucleated Red Blood Cells 0.1 % Sodium Level 141 136-145 mmol/L Potassium Level 3.9 3.5-5.1 mmol/L Chloride Level 107 98-107 mmol/L Carbon Dioxide Level 24 20-31 mmol/L Anion Gap 10 5-15 Blood Urea Nitrogen 9 9-23 mg/dL Creatinine 0.77 0.700-1.30 mg/dL Glomerular Filtration Rate Calc 121 >90 mL/min BUN/Creatinine Ratio 11.7 10.0-20.0 Serum Glucose 108 H 74-106 mg/dL Lactic Acid Level 1.6 0.4-2.0 mmol/L Calcium Level 10.4 8.7-10.4 mg/dL Total Bilirubin 0.4 0.2-1.0 mg/dL Aspartate Amino Transferase (AST) 19 13-40 U/L Alanine Aminotransferase (ALT) 30 7-40 U/L Alkaline Phosphatase 66 46-116 U/L Total Protein 7.8 5.7-8.2 g/dL Albumin 4.9 H 3.2-4.8 g/dL Urine Color Light-yellow Yellow Urine Clarity Clear Clear Urine pH 6.0 5.0-9.0 Urine Specific [place] 1.018 1.001-1.035 Urine Protein Negative Negative Urine Ketones Negative Negative Urine Blood Negative Negative /uL Urine Nitrite Negative Negative Urine Bilirubin Negative Negative Urine Urobilinogen Normal Negative mg/dL Urine Leukocyte Esterase Negative Negative /uL Urine RBC 3 0 - 3 /hpf Urine Microscopic WBC 2 0-3 /HPF Urine Squamous Epithelial Cells None seen <5 /hpf Urine Bacteria None seen None Seen /hpf Urine Glucose Normal Normal mg/dL Microbiology Date/Time Source Procedure Growth Status 07/20/24 14:49 Voided Urine Urine Culture - Preliminary Resulted PATIENT: FAISAL DEET: [id number]: [id number] : 1990 LOC: ER ROOM / BED: / AGE / SEX: 33 / M ADM STATUS: [facility] ER SERVICE [id number] ORDERING PHYSICIAN: CYRUS DUBON DO PROCEDURE(s): ABPL - CT AB PEL WO CON-NO ORAL OR IV REASON: flank pain, urinary complaints ORDER NUMBER(s): [id number], ACCESSION NUMBER(s): [id number] EXAM: CT Abdomen and Pelvis Without Intravenous Contrast CLINICAL INDICATION: flank pain, urinary complaints TECHNIQUE: Axial computed tomography images of the abdomen and pelvis without intravenous contrast. This CT exam was performed using one or more of the following dose reduction techniques: automated exposure control, adjustment of the mA and/or kV according to patient size, and/or use of iterative reconstruction technique. CONTRAST: RADIATION DOSE: CTDIvol = 27.11 mGy, DLP = 1640.05 mGy-cm COMPARISON: CT CT AB PEL WO CON-NO ORAL OR IV on DOS: 07/16/24 FINDINGS: LUNG BASES: Unremarkable. No mass. No consolidation. ABDOMEN: LIVER: Fatty infiltration of the liver. GALLBLADDER AND BILE DUCTS: Unremarkable. No calcified stones. No ductal dilation. PANCREAS: Unremarkable. No ductal dilation. SPLEEN: Unremarkable. No splenomegaly. ADRENALS: Unremarkable. No mass. KIDNEYS AND URETERS: Unremarkable. No obstructing stones. No hydronephrosis. STOMACH AND BOWEL: Fecal retention in the colon consistent with constipation. No obstruction. No mucosal thickening. PELVIS: APPENDIX: No findings to suggest acute appendicitis. BLADDER: Bladder wall thickening which may be due to the decompressed state of the bladder or due to cystitis. No stones. REPRODUCTIVE: Unremarkable as visualized. ABDOMEN and PELVIS: INTRAPERITONEAL SPACE: Unremarkable. No free air. No significant fluid col lection. BONES/JOINTS: No acute fracture. No dislocation. SOFT TISSUES: Umbilical hernia containing fat. VASCULATURE: Unremarkable. No abdominal aortic aneurysm. LYMPH NODES: Unremarkable. No enlarged lymph nodes. OTHER FINDINGS: . None. . . . . IMPRESSION: 1. Bladder wall thickening which may be due to the decompressed state of the bladder or due to cystitis. 2. Fecal retention in the colon consistent with constipation. 3. Umbilical hernia containing fat. ATED BY: EYAL BURNETT MD DICTATED DATE/TIME: 07/20/241518 SIGNED BY: EYAL BURNETT MD SIGNED DATE/TIME: 07/20/241518 Time of 1ST Reevaluation: 15:22 Reevaluation 1ST: Unchanged Time of 2ND Reevaluation: 19:32 (Patient states he has an appointment with his urologist in few days. Patient is already on antibiotics. Patient denies any history of STDs.) Patient Education/Counseling: Diagnosis, Treatment Family Education/Counseling: No Family Present Comments Patient presented with the above HPI.--urinary symptoms and flank pain----workup was initiated. patient was found with the above mentioned diagnosis. the following medications were ordered: please refer to order lists of meds and tests obtained by myself Dr. Dubon. Patient ED course and VS have been stabilized. Patient has been reassessed in the ED and remained in a stable condition. Pertinent incidental findings were discussed with the patient and/or family. Patient/family voices understanding and is agreeable with plan. Patient has been observed in the ED adequate length of time to insure improvement/stability. Escalation of care considered: Consideration of escalation to observation or admission Patient was DISCHARGED home in a stable condition. All the reports of any imaging studies that were ordered by myself were reviewed by myself. Departure 1 Departure Time of Disposition: 15:56 Impression: Primary Impression: Constipation Additional Impressions: Bilateral flank pain Vale catheter in place prior to arrival Disposition: 01 HOME / SELF CARE / HOMELESS Condition: Stable Additional Instructions: Additional instructions: You MUST follow-up with your primary care/family doctor in 1 to 2 days. If you are unable to see your primary care/family doctor, please return to our emergency room for re-assessment and re-evaluation in 1 to 2 days. Return to the emergency room here in our facility or to the nearest ER [facility] if your symptoms change or worsen. CONSULTATIONS: you MUST Follow-up for consultation as soon as possible with: -urology in 1-2 days. Please call for appointment. You MUST call the consultants office yourself to make an appointment. You may need to arrange that through your insurance and/or your primary/family doctor. If you are unable to see the sap consultant in 1 to 2 days, you must return to our emergency room (or any other ER of your choice) for re-assessment and re- evaluation. Adequate fluid hydration. Continue antibiotic she have at home as prescribed. Below is a copy of your radiological report for follow up: [place] [id number] Ph: [phone] DIAGNOSTIC IMAGING Diagnostic Imaging Report : [id number] Signed PATIENT: YOCASTA DEE ACCT: [id number] UNIT: [id number] : 1990 LOC: ER ROOM / BED: / AGE / SEX: 33 / M ADM STATUS: [facility] ER SERVICE 1454 ORDERING PHYSICIAN: CYRUS DUBON DO PROCEDURE(s): ABPL - CT AB PEL WO CON-NO ORAL OR IV REASON: flank pain, urinary complaints ORDER NUMBER(s): [id number], ACCESSION NUMBER(s): [id number] EXAM: CT Abdomen and Pelvis Without Intravenous Contrast CLINICAL INDICATION: flank pain, urinary complaints TECHNIQUE: Axial computed tomography images of the abdomen and pelvis without intravenous contrast. This CT exam was performed using one or more of the following dose reduction techniques: automated exposure control, adjustment of the mA and/or kV according to patient size, and/or use of iterative reconstruction technique. CONTRAST: RADIATION DOSE: CTDIvol = 27.11 mGy, DLP = 1640.05 mGy-cm COMPARISON: CT CT AB PEL WO CON-NO ORAL OR IV on DOS: 07/16/24 FINDINGS: LUNG BASES: Unremarkable. No mass. No consolidation. ABDOMEN: LIVER: Fatty infiltration of the liver. GALLBLADDER AND BILE DUCTS: Unremarkable. No calcified stones. No ductal dilation. PANCREAS: Unremarkable. No ductal dilation. SPLEEN: Unremarkable. No splenomegaly. ADRENALS: Unremarkable. No mass. KIDNEYS AND URETERS: Unremarkable. No obstructing stones. No hydronephrosis. STOMACH AND BOWEL: Fecal retention in the colon consistent with constipation. No obstruction. No mucosal thickening. PELVIS: APPENDIX: No findings to suggest acute appendicitis. BLADDER: Bladder wall thickening which may be due to the decompressed state of the bladder or due to cystitis. No stones. REPRODUCTIVE: Unremarkable as visualized. ABDOMEN and PELVIS: INTRAPERITONEAL SPACE: Unremarkable. No free air. No significant fluid collection. BONES/JOINTS: No acute fracture. No dislocation. SOFT TISSUES: Umbilical hernia containing fat. VASCULATURE: Unremarkable. No abdominal aortic aneurysm. LYMPH NODES: Unremarkable. No enlarged lymph nodes. OTHER FINDINGS: . None. . . . . IMPRESSION: 1. Bladder wall thickening which may be due to the decompressed state of the bladder or due to cystitis. 2. Fecal retention in the colon consistent with constipation. 3. Umbilical hernia containing fat. ATED BY: EYAL BURNETT MD DICTATED DATE/TIME: 07/20/241518 SIGNED BY: EYAL BURNETT MD SIGNED DATE/TIME: 07/20/241518 CC: Discharged With: Self Critical Care Note Critical Care Time?: No I personally scribed for CYRUS DUBON DO ([email or web address]) on 07/20/24 at 15:13. Electronically submitted by Frederick Bryson ([email or web address]). I personally scribed for CYRUS DUBON DO ([email or web address]) on 07/20/24 at 16:15. Electronically submitted by Frederick Bryson ([email or web address]). CYRUS DUBON DO July 20, 2024 15:13
--- NOTE | 2024-07-20 15:21 | DVH ---
EXAM: CT Abdomen and Pelvis Without Intravenous Contrast CLINICAL INDICATION: flank pain, urinary complaints TECHNIQUE: Axial computed tomography images of the abdomen and pelvis without intravenous contrast. This CT exam was performed using one or more of the following dose reduction techniques: automated exposure control, adjustment of the mA and/or kV according to patient size, and/or use of iterative r econstruction technique. CONTRAST: RADIATION DOSE: CTDIvol = 27.11 mGy, DLP = 1640.05 mGy-cm COMPARISON: CT CT AB PEL WO CON-NO ORAL OR IV on DOS: 07/16/24 FINDINGS: LUNG BASES: Unremarkable. No mass. No consolidation. ABDOMEN: LIVER: Fatty infiltration of the liver. GALLBLADDER AND BILE DUCTS: Unremarkable. No calcified stones. No ductal dilation. PANCREAS: Unremarkable. No ductal dilation. SPLEEN: Unremarkable. No splenomegaly. ADRENALS: Unremarkable. No mass. KIDNEYS AND URETERS: Unremarkable. No obstructing stones. No hydronephrosis. STOMACH AND BOWEL: Fecal retention in the colon consistent with constipation. No obstruction. No mucosal thickening. PELVIS: APPENDIX: No findings to suggest acute appendicitis. BLADDER: Bladder wall thickening which may be due to the decompressed state of the bladder or due t o cystitis. No stones. REPRODUCTIVE: Unremarkable as visualized. ABDOMEN and PELVIS: INTRAPERITONEAL SPACE: Unremarkable. No free air. No significant fluid collection. BONES/JOINTS: No acute fracture. No dislocation. SOFT TISSUES: Umbilical hernia containing fat. VASCULATURE: Unremarkable. No abdominal aortic aneurysm. LYMPH NODES: Unremarkable. No enlarged lymph nodes. OTHER FINDINGS: . None. . . . . IMPRESSION: 1. Bladder wall thickening which may be due to the decompressed state of the bladder or due to cysti tis. 2. Fecal retention in the colon consistent with constipation. 3. Umbilical hernia containing fat.
[2024-07-20 15:40] LABS: Basophils # (auto) 0.1 10 ^3/uL (0-0.2); Eosinophils # (auto) 0.2 10 ^3/uL (0-0.8); Eosinophils % (auto) 1.9 % (0.0-7.0); Hematocrit 48.3 % (41.0-53.0); Lymphocytes # (auto) 2.4 10 ^3/uL (0.4-5.4); Lymphocytes % (auto) 23.8 % (10.0-50.0); Mean Corpuscular Hemoglobin 32.2 pg (28.0-32.0); Mean Corpuscular Hgb Conc. 35.2 g/dL (32.0-36.0); Mean Corpuscular Volume 91.5 fL (80.0-100.0); Monocytes # (auto) 1.1 10 ^3/uL (0-1.3); Monocytes % (auto) 10.7 % (0.0-12.0); Neutrophils # (auto) 6.3 10 ^3/uL (1.6-8.6); Neutrophils % (auto) 62.6 % (37.0-80.0); Nucleated Red Blood Cells % 0.1 %; Platelet Count (auto) 284 10^3/uL (140-450); Red Blood Cells 5.28 10^6/uL (4.5-5.90); Red Cell Distribution Width 13.1 % (11.8-14.3); White Blood Cell 10.1 10^3/uL (4.4-10.8)
[2024-07-20 15:59] LABS: Alanine Aminotransferase 30 U/L (7-40); Alkaline Phosphatase 66 U/L (46-116); Anion Gap 10 (5-15); Aspartate Aminotransferase 19 U/L (13-40); BUN/Creatinine Ratio 11.7 (10.0-20.0); Blood Urea Nitrogen 9 mg/dL (9-23); Calcium 10.4 mg/dL (8.7-10.4); Carbon Dioxide 24 mmol/L (20-31); Chloride 107 mmol/L (98-107); Potassium 3.9 mmol/L (3.5-5.1); Sodium 141 mmol/L (136-145); Total Protein 7.8 g/dL (5.7-8.2)
[2024-07-20 16:00] LABS: Albumin 4.9 g/dL (3.2-4.8); Bilirubin, Total 0.4 mg/dL (0.2-1.0); Glucose 108 mg/dL (74-106)
[2024-07-20 17:20] LABS: Urine Bacteria None Seen /hpf (None Seen)
[2024-07-20 17:33] LABS: Urine Blood Negative /uL (Negative); Urine Clarity Clear (Clear); Urine Color Light-Yellow (Yellow); Urine Protein, UAD Negative (Negative); Urine Specific Gravity 1.018 (1.001-1.035); Urine Squamous Epithelial Cell None Seen /hpf (<5); Urine Urobilinogen Normal (Negative); Urine WBC 2 /HPF (0-3)
[2024-07-20 19:45] VITALS: BP 134/84; PULSE 92; RESP 16; TEMP 98.6; O2SAT 98
== END 2024-07-20 20:09 | disposition home or self-care (01) ==
LOC: ER 14:05
DX: K59.00 Constipation, unspecified (principal); R10.9 Unspecified abdominal pain; K42.9 Umbilical hernia without obstruction or gangrene; Z88.1 Allergy status to other antibiotic agents; Z88.2 Allergy status to sulfonamides; Z88.6 Allergy status to analgesic agent; Z98.890 Other specified postprocedural states; Z87.442 Personal history of urinary calculi
CPT/HCPCS: 36415; 74176; 80053; 81001; 83605; 85025; 87086

== ENCOUNTER 2024-07-24 08:35 | Emergency (ER) | payer MEDICAID ==
[~2024-07-24] VITALS: Ht 182.9 cm; Wt 139.4 kg
[2024-07-24 09:13] VITALS: TEMP 98
[2024-07-24 09:20] LABS: Urine Bacteria None Seen /hpf (None Seen)
[2024-07-24 09:30] LABS: Urine Blood 3+ /uL (Negative); Urine Budding Yeast OCCASIONAL /hpf (None Seen); Urine Clarity Ex.Turbid (Clear); Urine Protein, UAD 1+ (Negative); Urine Specific Gravity 1.023 (1.001-1.035); Urine Squamous Epithelial Cell FEW /hpf (<5); Urine Urobilinogen Normal (Negative); Urine WBC 16 /HPF (0-3); Urine pH 5.5 (5.0-9.0)
[2024-07-24 09:33] LABS: Urine Color STRAW (Yellow)
--- NOTE | 2024-07-24 09:34 | ED.PDOC ---
History of Present Illness HPI Comments 33 y/o M, with PMHx of urolithiasis presents to the ED for CC of Vale Catheter removal. Patient states, that he had a Vale catheter placed x4days ago by for urinary retention. Patient reports, that as of yesterday night (07/23/24) he has been unable to pee into catheter and has now developed new ons et symptoms of pressure and penile pain. Patient denies leg swelling, testicular swelling, or hematuria. No other symptoms or modifying factors present at this time. Chief Complaint: Urinary Time Seen by MD: 09:15 Primary Care Provider: NONE Reviewed Notes: Nurses Notes, Medications, Allergies Allergies: Coded Allergies: Ciprofloxacin (Verified Allergy, Severe, RASH, 07/17/17) Ibuprofen (Verified Allergy, Severe, RASH, 07/17/17) Sulfa Antibiotics (Verified Allergy, Severe, RASH, 07/17/17) Nitrofurantoin (Verified Allergy, Unknown, 07/20/24) Home Meds Active Scripts Tamsulosin Hcl (Tamsulosin Hcl) 0.4 Mg Cap, 1 CAP PO DAILY, #30 CAP 0 Refills Prov:MARGARITO RODRIGUEZ RESIDENT 07/18/24 Ciprofloxacin Hydrochloride (Ciprofloxacin HCl) 500 Mg Tab, 500 MG PO BID for 7 Days, #14 TAB Prov:MARGARITO RODRIGUEZ RESIDENT 07/18/24 Acetaminophen (Acetaminophen) 325 Mg Tab, 650 MG PO Q6HP for 30 Days, #240 TAB Prov:MARGARITO RODRIGUEZ RESIDENT 07/18/24 Phenazopyridine HCl (Phenazopyridine Hydrochol) 200 Mg Tab, 200 MG PO TID PRN, #9 TAB Prn urinary pain Prov:VALENTINA RIOS MD 07/16/24 Ibuprofen Micronized (Ibuprofen) 800 Mg Tab, 800 MG PO Q8HP PRN, #30 TAB Prn fever or pain. Take with food. Prov:VALENTINA RIOS MD 07/16/24 Acetaminophen (Tylenol Extra Strength) 500 Mg Tab, 1000 MG PO Q6HP PRN, #30 TAB Prn fever or pain Prov:VALNETINA RIOS MD 07/16/24 Cephalexin Monohydrate (Cephalexin) 500 Mg Cap, 1 CAP PO QID for 10 Days, #40 CAP Prov:VALENTINA RIOS MD 07/16/24 Tamsulosin Hcl (Flomax) 0.4 Mg Cap, 0.4 MG PO QPM, #7 CAP Prov:ERIKA ORTIZ MD 07/20/17 Information Source: Patient Mode of Arrival: Ambulatory Severity: Moderate Timing: Days Duration: Since onset Prehospital treatment: None Past Medical History PAST MEDICAL HISTORY: Kidney Stones Family History Family History: No family hx of HTN Social History Smoker: Non-Smoker Alcohol: Denies ETOH Use Drugs: Marijuana Lives In: Home Constitutional: denies: chills, diaphoresis, fatigue, fever, malaise, sweats, weakness, others EENTM: denies: blurred vision, double vision, ear bleeding, ear discharge, ear drainage, ear pain, ear ringing, eye pain, eye redness, hearing loss, mouth pain, mouth swelling, nasal discharge, nose bleeding, nose congestion, nose pain, photophobia, tearing, throat pain, throat swelling, voice changes, others Respiratory: denies: cough, hemoptysis, orthopnea, SOB at rest, shortness of breath, SOB with excertion, stridor, wheezing, others Cardiovascular: denies: chest pain, dizzy spells, diaphoresis, Dyspnea on exertion, edema, irregular heart beat, left arm pain, lightheadedness, palpitations, PND, syncope, others Gastrointestinal: denies: abdomen distended, abdominal pain, blood streaked bowels, constipated, diarrhea, dysphagia, difficulty swallowing, hematemesis, melena, nausea, poor appetite, poor fluid intake, rectal bleeding, rectal pain, vomiting, others Genitourinary: reports: testicle pain, others (penile pain); denies: burning, dysuria, flank pain, frequency, hematuria, incontinence, penile discharge, penile sore, pain, testicle swelling, urgency Neurological: denies: dizziness, fainting, headache, left sided numbness, left sided weakness, numbness, paresthesia, pre-existing deficit, right sided numbness, right sided weakness, seizure, speech problems, tingling, tremors, weakness, others Musculoskeletal: denies: back pain, gout, joint pain, joint swelling, muscle pain, muscle stiffness, neck pain, others Integumetry: denies: bruises, change in color, change in hair/nails, dryness, laceration, lesions, lumps, rash, wounds, others Allergic/Immunocompromised: denies: Difficulty Healing, Frequent Infections, Hives, Itching, others Hematologic/Lymphatic: denies: anemia, blood clots, easy bleeding, easy bruising, swollen glands, others Endocrine: denies: excessive hunger, excessive sweating, excessive thirst, excessive urination, flushing, intolerance to cold, intolerance to heat, unexplained weight gain, unexplained weight loss, others Psychiatric: denies: anxiety, bipolar disorder, depression, hopeless, panic disorder, schizophrenia, sleepless, suicidal, others All Other Systems: Reviewed and Negative Physical Exam General Appearance: No Apparent Distress, Normal HEENT: Normal ENT Inspection, Pharynx Normal, TMs Normal Neck: Full Range of Motion, Non-Tender, Normal, Normal Inspection Respiratory: Chest Non-Tender, Lungs Clear, No Accessory Muscle Use, No Respiratory Distress, Normal Breath Sounds Cardiovascular: No Edema, No JVD, No Murmur, No Gallop, Normal Peripheral Pulses, Regular Rate/Rhythm Breast Exam: Deferred Gastrointestinal: No Organomegaly, Non Tender, No Pulsatile Mass, Normal Bowel Sounds, Soft Genitalia: Deferred Pelvic: Deferred Rectal: Deferred Extremities: No calf tenderness, Normal capillary refill, Normal inspection, Normal range of motion, Non-tender, No pedal edema Musculoskeletal : Apperance: Normal Neurologic: Alert, panel maker II-XII nml as Tested, No Motor Deficits, Normal Affect, Normal Mood, No Sensory Deficits Cerebellar Function: Normal Reflexes: Normal Skin: Dry, Normal Color, Warm Lymphatic: No Adenopathy Was a procedure done? Was a procedure done?: No Differential Dx Considerations may include: Vale Catheter Removal X-Ray, Labs, Meds, VS Vital Signs Date Time Temp Pulse Resp B/P (MAP) Pulse Ox O2 Delivery O2 Flow Rate FiO2 07/24/24 09:13 98.0 81 17 125/87 (100) 99 98.0 07/24/24 09:12 Room Air* 0 21 07/24/24 09:01 98.3 92 20 120/80 (93) 97 98.3 Lab Test 07/24/24 08:52 Range/Units Urine Color Straw Yellow Urine Clarity Ex.turbid Clear Urine pH 5.5 5.0-9.0 Urine Specific [place] 1.023 1.001-1.035 Urine Protein 1+ H Negative Urine Ketones Negative Negative Urine Blood 3+ H Negative /uL Urine Nitrite Negative Negative Urine Bilirubin Negative Negative Urine Urobilinogen Normal Negative mg/dL Urine Leukocyte Esterase Negative Negative /uL Urine RBC 1307 0 - 3 /hpf Urine Microscopic WBC 16 H 0-3 /HPF Urine Squamous Epithelial Cells Few <5 /hpf Urine Bacteria None seen None Seen /hpf Urine Yeast (Budding) Occasional None Seen /hpf Urine Glucose Normal Normal mg/dL Time of 1ST Reevaluation: 09:45 Reevaluation 1ST: Unchanged Patient Education/Counseling: Diagnosis, Treatment Family Education/Counseling: No Family Present Departure 1 Departure Time of Disposition: 11:31 (Patient's Vale catheter was removed. Patient is able to pee without issue. We will discharge patient home with outpatient follow up) Impression: Primary Impression: Complication of Vale catheter Qualified Codes: T83.9XXA - Unspecified complication of genitourinary prosthetic device, implant and graft, initial encounter Disposition: 01 HOME / SELF CARE / HOMELESS Condition: Stable Additional Instructions: Your catheter was removed today. You were prescribed antibiotics please take as directed. It is important to follow up with the urologist this week. If your symptoms worsen or if any other concerns please return to the emergency room. e-Prescriptions Cefdinir (Cefdinir) 300 Mg Cap 1 CAP PO BID for 5 Days, #14 CAP Prov: HARI SUN MD 07/24/24 Discharged With: Self Critical Care Note Critical Care Time?: No Stability Stability form required: No Heart Score Heart Score: Heart Score Response (Comments) Value History N/A 0 EKG N/A 0 Age N/A 0 Risk Factors N/A 0 Troponin N/A 0 Total 0 I personally scribed for HARI SUN MD ([email or web address]) on 07/24/24 at 09:34. Electronically submitted by Chloé Vera [email or web address]). HARI SUN MD July 24, 2024 09:34
[2024-07-24] MEDS ORDERED: CEFD300C2 PO (11:34)
[2024-07-24 11:44] VITALS: BP 129/88; PULSE 80; RESP 12; O2SAT 99
== END 2024-07-24 11:45 | disposition home or self-care (01) ==
LOC: ER 08:35
DX: T83.9XXA Unspecified complication of genitourinary prosthetic device, implant and graft, initial encounter (principal); Z87.442 Personal history of urinary calculi; Z88.1 Allergy status to other antibiotic agents; Z88.2 Allergy status to sulfonamides; Z88.6 Allergy status to analgesic agent; Y92.89 Other specified places as the place of occurrence of the external cause
CPT/HCPCS: 81001

== ENCOUNTER 2024-07-26 15:58 | Inpatient (IN) | payer MEDICAID ==
[~2024-07-26] VITALS: Ht 185.4 cm; Wt 146.6 kg
[~2024-07-26 15:58] MED LIST changes: +CEFD300C2 PO
--- NOTE | 2024-07-26 16:09 | ED.PDOC ---
History of Present Illness HPI Comments 33 y/o M, GINA, presents to the ED for CC of urinary incontinence. EMS reports, patient is coming from 's Office where he was relayed to the ED, for a further evaluation on possible kidney Failure. Patient reports, that he was seen at [facility] Tuesday (07/24/24) where his Vale Catheter was discounted; patient reports new urinary incontinence with associated suprapubic tenderness. Patient denies nausea, vomiting, chills, back pain, or hematuria. No other symptoms or modifying factors present at this time. Time Seen by MD: 16:10 Primary Care Provider: NONE Reviewed Notes: Nurses Notes, Complex Manager Notes, Medications, Allergies Allergies: Coded Allergies: Ciprofloxacin (Verified Allergy, Severe, RASH, 07/17/17) Ibuprofen (Verified Allergy, Severe, RASH, 07/17/17) Sulfa Antibiotics (Verified Allergy, Severe, RASH, 07/17/17) Nitrofurantoin (Verified Allergy, Unknown, 07/20/24) Home Meds Active Scripts Cefdinir (Cefdinir) 300 Mg Cap, 1 CAP PO BID for 5 Days, #14 CAP Prov:AHRI SUN MD 07/24/24 Tamsulosin Hcl (Tamsulosin Hcl) 0.4 Mg Cap, 1 CAP PO DAILY, #30 CAP 0 Refills Prov:MARGARITO RODRIGUEZ 07/18/24 Ciprofloxacin Hydrochloride (Ciprofloxacin HCl) 500 Mg Tab, 500 MG PO BID for 7 Days, #14 TAB Prov:MARGARITO RODRIGUEZ 07/18/24 Acetaminophen (Acetaminophen) 325 Mg Tab, 650 MG PO Q6HP for 30 Days, #240 TAB Prov:MARGARITO RODRIGUEZ 07/18/24 Phenazopyridine HCl (Phenazopyridine Hydrochol) 200 Mg Tab, 200 MG PO TID PRN, #9 TAB Prn urinary pain Prov:VALENTINA RIOS MD 07/16/24 Ibuprofen Micronized (Ibuprofen) 800 Mg Tab, 800 MG PO Q8HP PRN, #30 TAB Prn fever or pain. Take with food. Prov:VALENTINA RIOS MD 07/16/24 Acetaminophen (Tylenol Extra Strength) 500 Mg Tab, 1000 MG PO Q6HP PRN, #30 TAB Prn fever or pain Prov:VALENTINA RIOS MD 07/16/24 Cephalexin Monohydrate (Cephalexin) 500 Mg Cap, 1 CAP PO QID for 10 Days, #40 CAP Prov:VALENTINA RIOS MD 07/16/24 Tamsulosin Hcl (Flomax) 0.4 Mg Cap, 0.4 MG PO QPM, #7 CAP Prov:ERIKA ORTIZ MD 07/20/17 Information Source: Patient, Emergency Med Personnel Mode of Arrival: EMS Severity: Moderate Timing: Days Duration: Since onset Prehospital treatment: None Past Medical History PAST MEDICAL HISTORY: Kidney Stones Family History Family History: No family hx of HTN Social History Smoker: Non-Smoker Alcohol: Denies ETOH Use Drugs: Marijuana Lives In: Home Constitutional: denies: chills, diaphoresis, fatigue, fever, malaise, sweats, weakness, others EENTM: denies: blurred vision, double vision, ear bleeding, ear discharge, ear drainage, ear pain, ear ringing, eye pain, eye redness, hearing loss, mouth pain, mouth swelling, nasal discharge, nose bleeding, nose congestion, nose pain, photophobia, tearing, throat pain, throat swelling, voice changes, others Respiratory: denies: cough, hemoptysis, orthopnea, SOB at rest, shortness of breath, SOB with excertion, stridor, wheezing, others Cardiovascular: denies: chest pain, dizzy spells, diaphoresis, Dyspnea on exertion, edema, irregular heart beat, left arm pain, lightheadedness, palpi tations, PND, syncope, others Gastrointestinal: reports: abdominal pain; denies: abdomen distended, blood streaked bowels, constipated, diarrhea, dysphagia, difficulty swallowing, hematemesis, melena, nausea, poor appetite, poor fluid intake, rectal bleeding, rectal pain, vomiting, others Genitourinary: reports: incontinence; denies: burning, dysuria, flank pain, frequency, hematuria, penile discharge, penile sore, pain, testicle pain, testicle swelling, urgency, others Neurological: denies: dizziness, fainting, headache, left sided numbness, left sided weakness, numbness, paresthesia, pre-existing deficit, right sided numbness, right sided weakness, seizure, speech problems, tingling, tremors, weakness, others Musculoskeletal: denies: back pain, gout, joint pain, joint swelling, muscle pain, muscle stiffness, neck pain, others Integumetry: denies: bruises, change in color, change in hair/nails, dryness, laceration, lesions, lumps, rash, wounds, others Allergic/Immunocompromised: denies: Difficulty Healing, Frequent Infections, Hives, Itching, others Hematologic/Lymphatic: denies: anemia, blood clots, easy bleeding, easy bruising, swollen glands, others Endocrine: denies: excessive hunger, excessive sweating, excessive thirst, excessive urination, flushing, intolerance to cold, intolerance to heat, unexplained weight gain, unexplained weight loss, others Psychiatric: denies: anxiety, bipolar disorder, depression, hopeless, panic disorder, schizophrenia, sleepless, suicidal, others All Other Systems: Reviewed and Negative Physical Exam General Appearance: No Apparent Distress, Normal HEENT: Normal ENT Inspection, Pharynx Normal, TMs Normal Neck: Full Range of Motion, Non-Tender, Normal, Normal Inspection Respiratory: Chest Non-Tender, Lungs Clear, No Accessory Muscle Use, No Respiratory Distress, Normal Breath Sounds Cardiovascular: No Edema, No JVD, No Murmur, No Gallop, Normal Peripheral Pulses, Regular Rate/Rhythm Breast Exam: Deferred Gastrointestinal: No Organomegaly, No Pulsatile Mass, Normal Bowel Sounds, Suprapubic (TENDERNESS) Genitalia: Deferred Pelvic: Deferred Rectal: Deferred Extremities: No calf tenderness, Normal capillary refill, Normal inspection, Normal range of motion, Non-tender, No pedal edema Musculoskeletal : Apperance: Normal Neurologic: Alert, application manager II-XII nml as Tested, No Motor Deficits, Normal Affect, Normal Mood, No Sensory Deficits Cerebellar Function: Normal Reflexes: Normal Skin: Dry, Normal Color, Warm Lymphatic: No Adenopathy Was a procedure done? Was a procedure done?: No Differential Dx Considerations may include: OVERFLOW URINARY INCONTINENCE X-Ray, Labs, Meds, VS Vital Signs Date Time Temp Pulse Resp B/P (MAP) Pulse Ox O2 Delivery O2 Flow Rate FiO2 07/26/24 16:19 97.9 84 18 158/87 (110) 99 97.9 07/26/24 15:59 85 Time of 1ST Reevaluation: 16:40 Reevaluation 1ST: Unchanged Patient Education/Counseling: Diagnosis, Treatment Family Education/Counseling: No Family Present Departure 1 Departure Time of Disposition: 16:33 (Patient with worsening overflow urinary incontinence and difficulty placing catheters with complicated urological history. We will admit patient for further workup and expert consultation) Impression: Primary Impression: Urinary incontinence, overflow Additional Impression: Suprapubic tenderness Disposition: ADMITTED INPATIENT Admit to: Med Surg Condition: Serious Critical Care Note Critical Care Time?: No Stability Stability form required: No Heart Score Heart Score: Heart Score Response (Comments) Value History N/A 0 EKG N/A 0 Age N/A 0 Risk Factors N/A 0 Troponin N/A 0 Total 0 I personally scribed for HARI SUN MD ([email or web address]) on 07/26/24 at 16:09. Electronically submitted by Chloé Vera [email or web address]). HARI SUN MD July 26, 2024 16:09
[2024-07-26 16:58] LABS: Basophils # (auto) 0.1 10 ^3/uL (0-0.2); Basophils % (auto) 1.2 % (0.0-2.0); Eosinophils # (auto) 0.2 10 ^3/uL (0-0.8); Eosinophils % (auto) 2.5 % (0.0-7.0); Hematocrit 46.9 % (41.0-53.0); Hemoglobin 16.1 g/dL (13.5-17.5); Lymphocytes # (auto) 2.6 10 ^3/uL (0.4-5.4); Lymphocytes % (auto) 28.4 % (10.0-50.0); Mean Corpuscular Hemoglobin 31.6 pg (28.0-32.0); Mean Corpuscular Hgb Conc. 34.4 g/dL (32.0-36.0); Monocytes # (auto) 0.9 10 ^3/uL (0-1.3); Monocytes % (auto) 9.4 % (0.0-12.0); Neutrophils # (auto) 5.5 10 ^3/uL (1.6-8.6); Neutrophils % (auto) 58.5 % (37.0-80.0); Platelet Count (auto) 306 10^3/uL (140-450); Red Cell Distribution Width 13.2 % (11.8-14.3); White Blood Cell 9.3 10^3/uL (4.4-10.8)
[2024-07-26 17:03] LABS: Potassium 4.3 mmol/L (3.5-5.1); Sodium 141 mmol/L (136-145)
[2024-07-26 17:04] LABS: Anion Gap 7 (5-15); Calcium 10.2 mg/dL (8.7-10.4); Carbon Dioxide 24 mmol/L (20-31); Chloride 110 mmol/L (98-107)
[2024-07-26 17:09] LABS: BUN/Creatinine Ratio 17.6 (10.0-20.0); Blood Urea Nitrogen 12 mg/dL (9-23); Glucose 88 mg/dL (74-106)
--- NOTE | 2024-07-26 17:22 | DVHHP2 ---
History of Present Illness Reason for Visit: urinary retention History of Present Illness 33-year-old male with a history of chronic kidney disease, kidney stones, and recent urologic intervention who presents with pelvic and perineal pain and urinary retention. The patient reports that on July 16, 2024, he underwent urological surgery to address urethral obstruction, after which a Vale catheter was placed with instructions by his urologist to remain in place for approximately one month. However, he returned to the emergency department on July 24, 2024, due to concerns with the Vale catheter malfunctioning. At that time, the catheter was removed, which caused severe pain, and he was discharged on cefdinir. He also states that he was previously prescribed ciprofloxacin despite a known allergy, which has increased his distrust and frustration regarding his care. Since removal of the catheter, he has not been able to urinate and is experiencing severe pelvic pressure and perineal pain. He appears visibly distressed and was tearful during the encounter. Urology was contacted and rein serted the Vale catheter, providing temporary relief. He denies fever, chills, nausea, vomiting, or hematuria. Labs including CBC and CMP were unremarkable. Renal ultrasound did not reveal hydronephrosis. CT abdomen/pelvis revealed findings consistent with cystitis, constipation, and an umbilical hernia containing fat. Patient remains uncomfortable and symptomatic, and will be adm itted for pain control, IV antibiotics, urinary retention management, and urologic follow-up. Past Medical History see hpi above Past Surgical History see hpi above Family History Reviewed, non-contributory to the management of this case. Past Social History The patient lives at home, denies smoking, alcohol or illicit drugs abuse. Review of Systems Constitutional: No: Fever, Chills, Sweats, Weakness, Malaise, Other Eyes: No: Pain, Vision change, Conjunctivae inflammation, Eyelid inflammation, Other, Redness ENT: No: Ear pain, Ear discharge, Nose pain, Nose discharge, Nose congestion, Mouth pain, Mouth swelling, Throat pain, Throat swelling, Other Respiratory: No: Cough, Dry, Shortness of breath, SOB with excertion, Wheezing, Hemoptysis, Pleuritic Pain, Sputum, Wheezing, Other Cardiovascular: Chest Pain; No: Palpitations, Orthopnea, Paroxysmal Noc. Dyspnea, Edema, Lt Headedness, Other Gastrointestinal: No: Nausea, Vomiting, Abdominal Pain, Diarrhea, Constipation, Melena, Hematochezia, Other Genitourinary: No Dysuria, No Frequency, No Incontinence, No Hematuria, No Retention, No Other Musculoskeletal: No: other, neck pain, shoulder pain, arm pain, back pain, hand pain, leg pain, foot pain Skin: No: Rash, Lesions, Jaundice, Bruising, Other Neurological: No: Weakness, Numbness, Incoordination, Change in speech, Confusion, Seizures, Other Allergies: Coded Allergies: Ciprofloxacin (Verified Allergy, Severe, RASH, 07/17/17) Ibuprofen (Verified Allergy, Severe, RASH, 07/17/17) Sulfa Antibiotics (Verified Allergy, Severe, RASH, 07/17/17) Nitrofurantoin (Verified Allergy, Unknown, 07/20/24) Exam Vital Signs Vital Signs Date Time Temp Pulse Resp B/P (MAP) Pulse Ox O2 Delivery O2 Flow Rate FiO2 07/26/24 16:19 97.9 84 18 158/87 (110) 99 97.9 General Appearance: Alert, Oriented X3, Cooperative, No acute distress HEENT: Atraumatic, PERRLA, EOMI, Mucous membr. moist/pink Respiratory: Clear to auscultation, Normal air movement Cardiovascular: Regular rate, Normal S1, Normal S2, No murmurs Abdominal: Normal bowel sounds, Soft, No tenderness, No hepatospenomegaly, No masses Extremities: No clubbing, No cyanosis, No edema, Normal pulses, No tenderness/swelling Skin: No rashes, No breakdown, No significant lesion Neuro: Normal gait, Normal speech, Strength at 5/5 X4 ext, Normal tone, Sensation intact, Cranial nerves 3-12 NL Psych/Mental Status: Mental status NL, Mood NL Labs/Xrays CT scan of the abdomen pelvis shows cystitis fecal retention constipation, umbilical hernia containing fat I reviewed labs, imaging CT scan abdomen pelvis, EKG and all diagnostic studies on this patient from ED records and the medical chart Labs Test 07/26/24 16:35 Range/Units White Blood Count 9.3 4.4-10.8 10^3/uL Red Blood Count 5.10 4.5-5.90 10^6/uL Hemoglobin 16.1 13.5-17.5 g/dL Hematocrit 46.9 41.0-53.0 % Mean Corpuscular Volume 92.0 80.0-100.0 fL Mean Corpuscular Hemoglobin 31.6 28.0-32.0 pg Mean Corpuscular Hemoglobin Concent 34.4 32.0-36.0 g/dL Red Cell Distribution Width 13.2 11.8-14.3 % Platelet Count 306 140-450 10^3/uL Mean Platelet Volume 7.9 6.9-10.8 fL Neutrophils (%) (Auto) 58.5 37.0-80.0 % Lymphocytes (%) (Auto) 28.4 10.0-50.0 % Monocytes (%) (Auto) 9.4 0.0-12.0 % Eosinophils (%) (Auto) 2.5 0.0-7.0 % Basophils (%) (Auto) 1.2 0.0-2.0 % Neutrophils # (Auto) 5.5 1.6-8.6 10 ^3/uL Lymphocytes # (Auto) 2.6 0.4-5.4 10 ^3/uL Monocytes # (Auto) 0.9 0-1.3 10 ^3/uL Eosinophils # (Auto) 0.2 0-0.8 10 ^3/uL Basophils # (Auto) 0.1 0-0.2 10 ^3/uL Nucleated Red Blood Cells 0.0 % Sodium Level 141 136-145 mmol/L Potassium Level 4.3 3.5-5.1 mmol/L Chloride Level 110 H 98-107 mmol/L Carbon Dioxide Level 24 20-31 mmol/L Anion Gap 7 5-15 Calcium Level 10.2 8.7-10.4 mg/dL Assessment/Plan Assessment/Plan 33-year-old male with recent urologic surgery presenting with acute urinary retention, pelvic and perineal pain, and cystitis status post Vale removal. Will admit for IV antibiotics, pain management, and close urology follow-up. Acute Urinary Retention status post catheter removal ct scan abd pelvis Unable to void since Vale catheter was removed Re-catheterization performed by urology Plan: Maintain Vale catheter in place Monitor I/Os closely Bladder scan if concern for ongoing retention Follow urology recommendations Pain management as needed acute Cystitis imaging confirmed CT abdomen/pelvis showed inflammatory changes consistent with cystitis No evidence of hydronephrosis Plan: Start IV ceftriaxone Monitor for fever, leukocytosis, hematuria UA and culture already obtained Adjust antibiotics per sensitivity acute Pelvic and Perineal Pain likely related to catheter trauma and infection Severe pain reported post-Vale removal Now improved post replacement but still uncomfortable Plan: Morphine IV PRN for severe pain Reassess pain control daily Consider lidocaine gel or pyridium if bladder spasms develop acute Constipation imaging-associated CT showed signs of constipation Plan: Docusate and senna for bowel regimen Ensure hydration Monitor for return of bowel movements chronic problems Known CKD chronic, Umbilical hernia with fat content incidental finding No signs of incarceration or obstruction FEN/PPx Fluids: IV NS at maintenance rate Nutrition: Regular diet as tolerated, encourage fiber DVT Prophylaxis: SCDs while inpatient GI Prophylaxis: no gi ppx since no hx of gerds or gi bleed plan admit to medicine for iv antibotics Plan discussed with: Patient Date of Service: July 26, 2024 Billing Provider: BRIDGETTE BALLESTEROS DNP Common Visit Codes: 89302-[id number] INP/OBS CARE (HIGH) BRIDGETTE BALLESTEROS DNP July 26, 2024 17:22
--- NOTE | 2024-07-26 17:36 | DVHINCON2 ---
Date of service: July 26, 2024 Referring Physician Fidel Reason for Consultation Urinary retention/overflow incontinence "no urine x 2 days" History of Present Illness Patient underwent Cystoscopy with DVIU on 07/17/24 with Vale placement. The stricture was severe and the Vale catheter was to be left in place x one month. He has an appointment with urology clinic on 08/08/24 for Vale removal and CIC teaching. Unfortunately, patient did not follow instructions and went to ER 2 days ago and Vale catheter was removed by ER staff. Now, he returns with c/o urinary retention. ER Staff called me and has not yet tried to insert a new catheter because of patient's history of noncompliance. Past Medical History USD Past Surgical History DVIU 07/18/24 Family History: Hypertension G8 FATHER Allergies: Coded Allergies: Ciprofloxacin (Verified Allergy, Severe, RASH, 07/17/17) Ibuprofen (Verified Allergy, Severe, RASH, 07/17/17) Sulfa Antibiotics (Verified Allergy, Severe, RASH, 07/17/17) Nitrofurantoin (Verified Allergy, Unknown, 07/20/24) Home Meds Active Scripts Cefdinir (Cefdinir) 300 Mg Cap, 1 CAP PO BID for 5 Days, #14 CAP Prov:HARI SUN MD 07/24/24 Tamsulosin Hcl (Tamsulosin Hcl) 0.4 Mg Cap, 1 CAP PO DAILY, #30 CAP 0 Refills Prov:MARGARITO RODRIGUEZ RESIDENT 07/18/24 Ciprofloxacin Hydrochloride (Ciprofloxacin HCl) 500 Mg Tab, 500 MG PO BID for 7 Days, #14 TAB Prov:MARGARITO RODRIGUEZ RESIDENT 07/18/24 Acetaminophen (Acetaminophen) 325 Mg Tab, 650 MG PO Q6HP for 30 Days, #240 TAB Prov:MARGARITO RODRIGUEZ RESIDENT 07/18/24 Phenazopyridine HCl (Phenazopyridine Hydrochol) 200 Mg Tab, 200 MG PO TID PRN, #9 TAB Prn urinary pain Prov:VALENTINA RIOS MD 07/16/24 Ibuprofen Micronized (Ibuprofen) 800 Mg Tab, 800 MG PO Q8HP PRN, #30 TAB Prn fever or pain. Take with food. Prov:VALENTINA RIOS MD 07/16/24 Acetaminophen (Tylenol Extra Strength) 500 Mg Tab, 1000 MG PO Q6HP PRN, #30 TAB Prn fever or pain Prov:VALENTINA RIOS MD 07/16/24 Cephalexin Monohydrate (Cephalexin) 500 Mg Cap, 1 CAP PO QID for 10 Days, #40 CAP Prov:VALENTINA RIOS MD 07/16/24 Tamsulosin Hcl (Flomax) 0.4 Mg Cap, 0.4 MG PO QPM, #7 CAP Prov:ERIKA ORTIZ MD 07/20/17 Review of Systems Urinary outlet issues Vital Signs Vital Signs Date Time Temp Pulse Resp B/P (MAP) Pulse Ox O2 Delivery O2 Flow Rate FiO2 07/26/24 16:19 97.9 84 18 158/87 (110) 99 97.9 Labs/Diagnostic Data Labs Test 07/26/24 16:35 Range/Units White Blood Count 9.3 4.4-10.8 10^3/uL Red Blood Count 5.10 4.5-5.90 10^6/uL Hemoglobin 16.1 13.5-17.5 g/dL Hematocrit 46.9 41.0-53.0 % Mean Corpuscular Volume 92.0 80.0-100.0 fL Mean Corpuscular Hemoglobin 31.6 28.0-32.0 pg Mean Corpuscular Hemoglobin Concent 34.4 32.0-36.0 g/dL Red Cell Distribution Width 13.2 11.8-14.3 % Platelet Count 306 140-450 10^3/uL Mean Platelet Volume 7.9 6.9-10.8 fL Neutrophils (%) (Auto) 58.5 37.0-80.0 % Lymphocytes (%) (Auto) 28.4 10.0-50.0 % Monocytes (%) (Auto) 9.4 0.0-12.0 % Eosinophils (%) (Auto) 2.5 0.0-7.0 % Basophils (%) (Auto) 1.2 0.0-2.0 % Neutrophils # (Auto) 5.5 1.6-8.6 10 ^3/uL Lymphocytes # (Auto) 2.6 0.4-5.4 10 ^3/uL Monocytes # (Auto) 0.9 0-1.3 10 ^3/uL Eosinophils # (Auto) 0.2 0-0.8 10 ^3/uL Basophils # (Auto) 0.1 0-0.2 10 ^3/uL Nucleated Red Blood Cells 0.0 % Sodium Level 141 136-145 mmol/L Potassium Level 4.3 3.5-5.1 mmol/L Chloride Level 110 H 98-107 mmol/L Carbon Dioxide Level 24 20-31 mmol/L Anion Gap 7 5-15 Calcium Level 10.2 8.7-10.4 mg/dL Assessment Urinary retention Noncompliance with catheter management Urethral stricture Plan/Recommendation Will place a Vale catheter in ER. If unsuccessful, will take to OR for cystoscopy with DVIU and Vale insertion as long as patient agrees to my recommendations on Vale management. Plan discussed with: Other LENNY SCHWARZ MD July 26, 2024 17:36
--- NOTE | 2024-07-26 18:24 | DVHINCON2 ---
Date of service: July 26, [address] Parra Reason for Consultation baker placement History of Present Illness History Source: Patient, Family, RN Notes, MD Notes, Old Records Exam Limitations: No limitations HPI 33 yo male s/p DVIU and baker placement 07/17/24 c/o urinary retention with dysuria. Pt had baker in place s/p surgery and was given strict instructions to not remove x 4 weeks. Pt presented to this ER 2 days ago c/o catheter malfunction and the baker was removed. According to notes he was able to void after. Patient returned to the ER today with the above complaint. Urology asked to place baker. After instillation of glydo a 16F was placed without difficulty. immediate return of clear yellow urine was noted. Home Meds Active Scripts Cefdinir (Cefdinir) 300 Mg Cap, 1 CAP PO BID for 5 Days, #14 CAP Prov:HARI SUN MD 07/24/24 Tamsulosin Hcl (Tamsulosin Hcl) 0.4 Mg Cap, 1 CAP PO DAILY, #30 CAP 0 Refills Prov:MARGARITO RODRIGUEZ RESIDENT 07/18/24 Ciprofloxacin Hydrochloride (Ciprofloxacin HCl) 500 Mg Tab, 500 MG PO BID for 7 Days, #14 TAB Prov:MARGARITO RODRIGUEZ 07/18/24 Acetaminophen (Acetaminophen) 325 Mg Tab, 650 MG PO Q6HP for 30 Days, #240 TAB Prov:MARGARITO RODRIGUEZ RESIDENT 07/18/24 Phenazopyridine HCl (Phenazopyridine Hydrochol) 200 Mg Tab, 200 MG PO TID PRN, #9 TAB Prn urinary pain Prov:VALENTINA RIOS MD 07/16/24 Ibuprofen Micronized (Ibuprofen) 800 Mg Tab, 800 MG PO Q8HP PRN, #30 TAB Prn fever or pain. Take with food. Prov:VALENTINA RIOS MD 07/16/24 Acetaminophen (Tylenol Extra Strength) 500 Mg Tab, 1000 MG PO Q6HP PRN, #30 TAB Prn fever or pain Prov:VALENTINA RIOS MD 07/16/24 Cephalexin Monohydrate (Cephalexin) 500 Mg Cap, 1 CAP PO QID for 10 Days, #40 CAP Prov:VALENTINA RIOS MD 4/28/25 Tamsulosin Hcl (Flomax) 0.4 Mg Cap, 0.4 MG PO QPM, #7 CAP Prov:ERIKA ORTIZ MD 07/20/17 Past Medical History Patient Family History: Hypertension G8 FATHER Review of Systems Genitourinary: Dysuria, Incontinence H&P Exam Vital Signs Vital Signs Date Time Temp Pulse Resp B/P (MAP) Pulse Ox O2 Delivery O2 Flow Rate FiO2 07/26/24 16:19 97.9 84 18 158/87 (110) 99 97.9 General Appeara: Well developed, Well nourished, Normal Appearance, Mild distress, Obese Abdominal Exam: Normal bowel sounds, Soft Abdominal Pain Onset Location: Suprapubic Neuro/Mental St: Alert, Oriented Appearance: Appropriate appearance, Appropriate insight Eye contact/ Speech: Cooperative, Good eye contact, Normal speech Skin Exam: Normal inspection, Normal color, Warm/dry Labs/Xrays Labs Test 07/26/24 16:35 Range/Units White Blood Count 9.3 4.4-10.8 10^3/uL Red Blood Count 5.10 4.5-5.90 10^6/uL Hemoglobin 16.1 13.5-17.5 g/dL Hematocrit 46.9 41.0-53.0 % Mean Corpuscular Volume 92.0 80.0-100.0 fL Mean Corpuscular Hemoglobin 31.6 28.0-32.0 pg Mean Corpuscular Hemoglobin Concent 34.4 32.0-36.0 g/dL Red Cell Distribution Width 13.2 11.8-14.3 % Platelet Count 306 140-450 10^3/uL Mean Platelet Volume 7.9 6.9-10.8 fL Neutrophils (%) (Auto) 58.5 37.0-80.0 % Lymphocytes (%) (Auto) 28.4 10.0-50.0 % Monocytes (%) (Auto) 9.4 0.0-12.0 % Eosinophils (%) (Auto) 2.5 0.0-7.0 % Basophils (%) (Auto) 1.2 0.0-2.0 % Neutrophils # (Auto) 5.5 1.6-8.6 10 ^3/uL Lymphocytes # (Auto) 2.6 0.4-5.4 10 ^3/uL Monocytes # (Auto) 0.9 0-1.3 10 ^3/uL Eosinophils # (Auto) 0.2 0-0.8 10 ^3/uL Basophils # (Auto) 0.1 0-0.2 10 ^3/uL Nucleated Red Blood Cells 0.0 % Sodium Level 141 136-145 mmol/L Potassium Level 4.3 3.5-5.1 mmol/L Chloride Level 110 H 98-107 mmol/L Carbon Dioxide Level 24 20-31 mmol/L Anion Gap 7 5-15 Blood Urea Nitrogen 12 9-23 mg/dL Creatinine 0.68 L 0.700-1.30 mg/dL Glomerular Filtration Rate Calc 126 >90 mL/min BUN/Creatinine Ratio 17.6 10.0-20.0 Serum Glucose 88 74-106 mg/dL Calcium Level 10.2 8.7-10.4 mg/dL Assessment/Plan Problem List: (1) UTI (urinary tract infection) (2) Complication of Baker catheter (3) Urinary incontinence, overflow Plan urine culture - empiric abx pain meds prn keep baker to gravity drainage outpt follow up 4 weeks for baker removal Plan discussed with: Patient, Other NELLI PIZANO CLINICAL MOLECULAR GENETICIST July 26, 2024 18:24
[2024-07-26] MEDS ORDERED: NITROGLYCERIN 0.4 MG SL TAB SL PRN (18:30)
[2024-07-26] MEDS ORDERED: ONDANSETRON HCL 4 MG/2 ML VIAL IV PRN (18:30)
[2024-07-26] MEDS ORDERED: DOCUSATE SOD 100 MG CAP PO PRN (18:30)
[2024-07-26] MEDS: HYDROcodone-ACET 10/325MG TAB PO ONE (18:40)
[2024-07-26 18:45] VITALS: PULSE 80; RESP 20; O2SAT 98
[2024-07-26] MEDS: cefTRIAXone 1GM/50ML D5W 50 ML IV ONE (18:46)
[2024-07-26] MEDS: MORPHINE SULFATE INJ 2 MG/ml SYRG IV ONE (18:47)
[2024-07-26 20:25] VITALS: PULSE 74; RESP 19; O2SAT 98
[2024-07-26] MEDS: OXYBUTYNIN CHL 5 MG TAB PO SCH (21:19)
[2024-07-26] MEDS: MORPHINE SULFATE INJ 2 MG/ml SYRG IV PRN (21:20)
[2024-07-26 21:45] VITALS: BP 140/96; PULSE 76; RESP 18; TEMP 98; O2SAT 94
[2024-07-26 22:45] VITALS: BP 140/96; PULSE 76; RESP 18; TEMP 98; O2SAT 94
[2024-07-26] MEDS: SODIUM CHLORIDE 0.9% 1,000 ML IV SCH (23:15)
[2024-07-27 01:00] VITALS: BP 148/66; PULSE 66; RESP 16; TEMP 97.5; O2SAT 96
[2024-07-27 01:56] LABS: Urine Bacteria None Seen /hpf (None Seen)
[2024-07-27 02:08] LABS: Urine Blood 1+ /uL (Negative); Urine Clarity Clear (Clear); Urine Color Light-Yellow (Yellow); Urine Mucus FEW (None Seen); Urine Protein, UAD Negative (Negative); Urine Specific Gravity 1.027 (1.001-1.035); Urine Squamous Epithelial Cell FEW /hpf (<5); Urine Urobilinogen Normal (Negative); Urine WBC 106 /HPF (0-3); Urine WBC Clumps PRESENT /hpf (None Seen); Urine pH 5.5 (5.0-9.0)
[2024-07-27 05:00] VITALS: BP 129/76; PULSE 65; RESP 16; TEMP 97.8; O2SAT 100
[2024-07-27 06:18] LABS: Basophils # (auto) 0.1 10 ^3/uL (0-0.2); Basophils % (auto) 1.2 % (0.0-2.0); Eosinophils # (auto) 0.3 10 ^3/uL (0-0.8); Eosinophils % (auto) 2.2 % (0.0-7.0); Hematocrit 47.9 % (41.0-53.0); Hemoglobin 16.2 g/dL (13.5-17.5); Lymphocytes # (auto) 3.5 10 ^3/uL (0.4-5.4); Lymphocytes % (auto) 29.6 % (10.0-50.0); Mean Corpuscular Hemoglobin 31.5 pg (28.0-32.0); Mean Corpuscular Hgb Conc. 33.9 g/dL (32.0-36.0); Monocytes # (auto) 1.2 10 ^3/uL (0-1.3); Monocytes % (auto) 10.4 % (0.0-12.0); Neutrophils # (auto) 6.7 10 ^3/uL (1.6-8.6); Neutrophils % (auto) 56.6 % (37.0-80.0); Nucleated Red Blood Cells % 0.4 %; Platelet Count (auto) 327 10^3/uL (140-450); Red Blood Cells 5.15 10^6/uL (4.5-5.90); Red Cell Distribution Width 13.1 % (11.8-14.3); White Blood Cell 11.8 10^3/uL (4.4-10.8)
[2024-07-27 06:21] LABS: Alanine Aminotransferase 24 U/L (7-40); Albumin 4.6 g/dL (3.2-4.8); Alkaline Phosphatase 64 U/L (46-116); Anion Gap 9 (5-15); Blood Urea Nitrogen 10 mg/dL (9-23); Calcium 9.3 mg/dL (8.7-10.4); Carbon Dioxide 25 mmol/L (20-31); Chloride 107 mmol/L (98-107); Glucose 84 mg/dL (74-106); Potassium 4.3 mmol/L (3.5-5.1); Sodium 141 mmol/L (136-145); Total Protein 7.2 g/dL (5.7-8.2)
[2024-07-27 06:22] LABS: Aspartate Aminotransferase 16 U/L (13-40); Bilirubin, Total 0.7 mg/dL (0.2-1.0)
[2024-07-27 08:53] VITALS: BP 126/78; PULSE 57; RESP 17; TEMP 98.7; O2SAT 98
--- NOTE | 2024-07-27 09:02 | ECG ---
[facility] Test Date: 2024-07-26 Test Time: 15:59:26 Pat Name: YOCASTA DEE Department: ED Room: 0251 B Gender: M Chiller Technician: gp : 1990 Requested By: HARI SUN Order Number: [id number] Reading MD: Gorge Servin Measurements Intervals [place] Rate: 85 P: 65 ME: 158 QRS: 72 QRSD: 106 T: 24 QT: 376 QTc: 447 Interpretive Statements Sinus rhythm Electronically Signed On 08-01-2024 12:05:22 PDT by Gorge Servin Please click the below link to view image of tracing.
[2024-07-27] MEDS: cefTRIAXone 1GM/50ML D5W 50 ML IV SCH (09:42)
[2024-07-27 13:00] VITALS: BP 130/57; PULSE 78; RESP 19; TEMP 98.7; O2SAT 99
--- NOTE | 2024-07-27 13:39 | DVHPN2 ---
Reviewed: Care Plan, H&P, Labs, Medications, Previous Orders, Radiology Changes from previous H/P or p: No Changes Eyes: No Pain, No Vision change, No Conjunctivae inflammation, No Eyelid inflammation, No Other, No Redness ENT: No Ear pain, No Ear discharge, No Nose pain, No Nose discharge, No Nose congestion, No Mouth pain, No Mouth swelling, No Throat pain, No Throat swelling, No Other Cardiovascular: Chest Pain; No Palpitations, No Orthopnea, No Paroxysmal Noc. Dyspnea, No Edema, No Lt Headedness, No Other Respiratory: No Cough, No Dry, No Shortness of breath, No SOB with excertion, No Wheezing, No Hemoptysis, No Pleuritic Pain, No Sputum, No Other Gastrointestinal: No Nausea, No Vomiting, No Abdominal Pain, No Diarrhea, No Constipation, No Melena, No Hematochezia, No Other Genitourinary: No Dysuria, No Frequency, No Incontinence, No Hematuria, No Retention, No Other Musculoskeletal: No other, No neck pain, No shoulder pain, No arm pain, No back pain, No hand pain, No leg pain, No foot pain Skin: No Rash, No Lesions, No Jaundice, No Bruising, No Other Objective Vitals Vital Signs Date Time Temp Pulse Resp B/P (MAP) Pulse Ox O2 Delivery O2 Flow Rate FiO2 07/27/24 11:20 62 17 126/73 07/27/24 08:53 98.7 98 98.7 07/27/24 08:00 Room Air* 0 21 Intake/Output Intake and Output 07/27/24 07:00 Intake Total 800 ml Output Total 720 ml Balance 80 ml Intake Oral 800 ml Output Urine Total 720 ml Medications Current Medications Medications Dose Ordered Sig/Rosendo Route Start Time Stop Time Status Last Admin Dose Admin Oxybutynin Chloride 5 mg BID PO 07/26/24 22:00 07/27/24 09:42 5 MG Sodium Chloride 1,000 ml @ 120 mls/hr Q8H20M IV 07/26/24 18:30 07/27/24 02:50 120 MLS/HR Ondansetron HCl 4 mg Q4HP PRN IV 07/26/24 18:30 Docusate Sodium 100 mg BIDPRN PRN PO 07/26/24 18:30 Morphine Sulfate 2 mg Q4HPRN PRN IV 07/26/24 18:30 07/27/24 09:57 2 MG Nitroglycerin 0.4 mg Q5MINP PRN SL 07/26/24 18:30 Ceftriaxone Sodium 50 ml @ 100 mls/hr DAILY@09 IV 07/27/24 09:00 07/27/24 09:42 100 MLS/HR Laboratory Results Laboratory Tests 07/27/24 05:37 Chemistry Test 07/26/24 16:35 07/27/24 05:37 Calcium Level 10.2 mg/dL (8.7-10.4) 9.3 mg/dL (8.7-10.4) Albumin 4.6 g/dL (3.2-4.8) Total Protein 7.2 g/dL (5.7-8.2) LFT Test 07/27/24 05:37 Alanine Aminotransferase (ALT) 24 U/L (7-40) Alkaline Phosphatase 64 U/L (46-116) Aspartate Amino Transferase (AST) 16 U/L (13-40) Total Bilirubin 0.7 mg/dL (0.2-1.0) Urinalysis Test 07/27/24 01:32 Urine Color Light-yellow (Yellow) Urine Clarity Clear (Clear) Urine pH 5.5 (5.0-9.0) Urine Specific [place] 1.027 (1.001-1.035) Urine Protein Negative (Negative) Urine Ketones Negative (Negative) Urine Blood 1+ /uL (Negative) H Urine Nitrite Negative (Negative) Urine Bilirubin Negative (Negative) Urine Urobilinogen Normal mg/dL (Negative) Urine Leukocyte Esterase 3+ /uL (Negative) Urine RBC 32 /hpf (0 - 3) Urine WBC Clumps Present /hpf (None Seen) Urine Microscopic WBC 106 /HPF (0-3) H Urine Squamous Epithelial Cells Few /hpf (<5) Urine Bacteria None seen /hpf (None Seen) Urine Mucus Few (None Seen) Urine Glucose Normal mg/dL (Normal) Labs and/or images reviewed: Labs reviewed by me, Image(s) reviewed by me Assessment/Plan Assessment/Plan Sepsis secondary to urinary tract infection: Urine cultures Rocephin Acute urinary retention : Consult by Urology Dr. Ramires appreciated Vale to gravity outpatient follow up with the Urology in four weeks for Vale removal Noncompliance with catheter management Urethral stricture Noncompliance with catheter management Plan discussed with: Patient Date of Service: July 27, 2024 Billing Provider: JARET HARTMANN MD Common Visit Codes: [id number] INP/OBS CARE(HIGH) JARET HARTMANN MD July 27, 2024 13:39
[2024-07-27 17:05] VITALS: BP 140/67; PULSE 56; RESP 16; TEMP 98.2; O2SAT 99
[2024-07-27 21:00] VITALS: BP 127/73; PULSE 74; RESP 17; TEMP 98.1; O2SAT 99
[2024-07-28 01:00] VITALS: BP 127/69; PULSE 56; RESP 16; TEMP 98.1; O2SAT 99
[2024-07-28 05:00] VITALS: BP 120/63; PULSE 70; RESP 18; TEMP 97.9; O2SAT 98
[2024-07-28 08:38] VITALS: BP 128/63; PULSE 78; RESP 18; TEMP 98.2; O2SAT 99
--- NOTE | 2024-07-28 08:40 | DVHPN2 ---
Reviewed: Care Plan, H&P, Labs, Medications, Previous Orders, Radiology Changes from previous H/P or p: No Changes Eyes: No Pain, No Vision change, No Conjunctivae inflammation, No Eyelid inflammation, No Other, No Redness ENT: No Ear pain, No Ear discharge, No Nose pain, No Nose discharge, No Nose congestion, No Mouth pain, No Mouth swelling, No Throat pain, No Throat swelling, No Other Cardiovascular: Chest Pain; No Palpitations, No Orthopnea, No Paroxysmal Noc. Dyspnea, No Edema, No Lt Headedness, No Other Respiratory: No Cough, No Dry, No Shortness of breath, No SOB with excertion, No Wheezing, No Hemoptysis, No Pleuritic Pain, No Sputum, No Other Gastrointestinal: No Nausea, No Vomiting, No Abdominal Pain, No Diarrhea, No Constipation, No Melena, No Hematochezia, No Other Genitourinary: No Dysuria, No Frequency, No Incontinence, No Hematuria, No Retention, No Other Musculoskeletal: No other, No neck pain, No shoulder pain, No arm pain, No back pain, No hand pain, No leg pain, No foot pain Skin: No Rash, No Lesions, No Jaundice, No Bruising, No Other Objective Vitals Vital Signs Date Time Temp Pulse Resp B/P (MAP) Pulse Ox O2 Delivery O2 Flow Rate FiO2 07/28/24 05:00 70 18 120/63 07/28/24 05:00 97.9 98 97.9 07/27/24 20:00 Room Air* 0 21 Intake/Output Intake and Output 07/28/24 07:00 Intake Total 3907.2 ml Output Total 2700 ml Balance 1207.2 ml Intake Oral 1800 ml IV Total 2107.2 ml Output Urine Total 2700 ml Medications Current Medications Medications Dose Ordered Sig/Rosendo Route Start Time Stop Time Status Last Admin Dose Admin Oxybutynin Chloride 5 mg BID PO 07/26/24 22:00 07/27/24 21:56 5 MG Sodium Chloride 1,000 ml @ 120 mls/hr Q8H20M IV 07/26/24 18:30 07/28/24 05:15 120 MLS/HR Ondansetron HCl 4 mg Q4HP PRN IV 07/26/24 18:30 Docusate Sodium 100 mg BIDPRN PRN PO 07/26/24 18:30 Morphine Sulfate 2 mg Q4HPRN PRN IV 07/26/24 18:30 07/28/24 04:25 2 MG Nitroglycerin 0.4 mg Q5MINP PRN SL 07/26/24 18:30 Ceftriaxone Sodium 50 ml @ 100 mls/hr DAILY@09 IV 07/27/24 09:00 07/27/24 09:42 100 MLS/HR Laboratory Results Laboratory Tests 07/27/24 05:37 Urinalysis Test 07/27/24 01:32 Urine Color Light-yellow (Yellow) Urine Clarity Clear (Clear) Urine pH 5.5 (5.0-9.0) Urine Specific [place] 1.027 (1.001-1.035) Urine Protein Negative (Negative) Urine Ketones Negative (Negative) Urine Blood 1+ /uL (Negative) H Urine Nitrite Negative (Negative) Urine Bilirubin Negative (Negative) Urine Urobilinogen Normal mg/dL (Negative) Urine Leukocyte Esterase 3+ /uL (Negative) Urine RBC 32 /hpf (0 - 3) Urine WBC Clumps Present /hpf (None Seen) Urine Microscopic WBC 106 /HPF (0-3) H Urine Squamous Epithelial Cells Few /hpf (<5) Urine Bacteria None seen /hpf (None Seen) Urine Mucus Few (None Seen) Urine Glucose Normal mg/dL (Normal) Microbiology Microbiology Date/Time Source Procedure Growth Status 07/27/24 01:35 Nose MRSA Screen - Final Complete Labs and/or images reviewed: Labs reviewed by me, Image(s) reviewed by me Assessment/Plan Assessment/Plan Sepsis secondary to urinary tract infection: Urine cultures pending, continue Rocephin Acute urinary retention : Consult by Urology Dr. Ramires appreciated Vale to gravity outpatient follow up with the Urology in four weeks for Vale removal Noncompliance with catheter management Urethral stricture Lower abdominal pain secondary to urinary retention: Noncompliance with catheter management Plan discussed with: Patient Date of Service: July 28, 2024 Billing Provider: JARET HARTMANN MD Common Visit Codes: [id number] INP/OBS CARE(HIGH) JARET HARTMANN MD July 28, 2024 08:40
[2024-07-28 13:00] VITALS: BP 131/52; PULSE 75; RESP 17; TEMP 98.9; O2SAT 99
[2024-07-28 17:14] VITALS: BP 118/50; PULSE 51; RESP 16; TEMP 98.2; O2SAT 99
[2024-07-28 21:00] VITALS: BP 127/66; PULSE 65; RESP 18; TEMP 98; O2SAT 97
[2024-07-29 01:04] VITALS: BP 114/58; PULSE 61; RESP 18; TEMP 98; O2SAT 98
[2024-07-29 05:19] VITALS: BP 112/67; PULSE 56; RESP 19; TEMP 97.7; O2SAT 98
[2024-07-29 07:24] LABS: Anion Gap 7 (5-15); Carbon Dioxide 27 mmol/L (20-31); Potassium 4.2 mmol/L (3.5-5.1); Sodium 141 mmol/L (136-145)
[2024-07-29 07:25] LABS: Calcium 9.5 mg/dL (8.7-10.4)
[2024-07-29 07:26] LABS: Chloride 107 mmol/L (98-107)
[2024-07-29 07:30] LABS: Blood Urea Nitrogen 12 mg/dL (9-23); Glucose 84 mg/dL (74-106)
[2024-07-29 07:31] LABS: BUN/Creatinine Ratio 15.4 (10.0-20.0)
[2024-07-29 08:00] VITALS: PULSE 88; RESP 18
[2024-07-29 09:00] VITALS: BP 115/42; PULSE 53; RESP 18; TEMP 97.9; O2SAT 96
[2024-07-29] MEDS ORDERED: HYDR-4902 PO (09:56)
[2024-07-29] MEDS ORDERED: OXYB5TAB14 PO (09:56)
[2024-07-29] MEDS ORDERED: CEPH500C PO (09:56)
--- NOTE | 2024-07-29 10:07 | DVHDS2 ---
Discharge Summary Date of Admission July 26, 2024 at 18:18 Date of Discharge: July 29, 2024 Admitting Diagnosis Acute urinary retention Wounds: None Labs/Diagnostic Data: Laboratory Results Test 07/29/24 06:28 07/27/24 05:37 07/27/24 01:32 Sodium Level 141 mmol/L (136-145) Potassium Level 4.2 mmol/L (3.5-5.1) Chloride Level 107 mmol/L (98-107) Carbon Dioxide Level 27 mmol/L (20-31) Anion Gap 7 (5-15) Blood Urea Nitrogen 12 mg/dL (9-23) Creatinine 0.78 mg/dL (0.700-1.30) Glomerular Filtration Rate Calc 121 mL/min (>90) BUN/Creatinine Ratio 15.4 (10.0-20.0) Serum Glucose 84 mg/dL (74-106) Calcium Level 9.5 mg/dL (8.7-10.4) White Blood Count 11.8 10^3/uL (4.4-10.8) Red Blood Count 5.15 10^6/uL (4.5-5.90) Hemoglobin 16.2 g/dL (13.5-17.5) Hematocrit 47.9 % (41.0-53.0) Mean Corpuscular Volume 93.0 fL (80.0-100.0) Mean Corpuscular Hemoglobin 31.5 pg (28.0-32.0) Mean Corpuscular Hemoglobin Concent 33.9 g/dL (32.0-36.0) Red Cell Distribution Width 13.1 % (11.8-14.3) Platelet Count 327 10^3/uL (140-450) Mean Platelet Volume 7.9 fL (6.9-10.8) Neutrophils (%) (Auto) 56.6 % (37.0-80.0) Lymphocytes (%) (Auto) 29.6 % (10.0-50.0) Monocytes (%) (Auto) 10.4 % (0.0-12.0) Eosinophils (%) (Auto) 2.2 % (0.0-7.0) Basophils (%) (Auto) 1.2 % (0.0-2.0) Neutrophils # (Auto) 6.7 10 ^3/uL (1.6-8.6) Lymphocytes # (Auto) 3.5 10 ^3/uL (0.4-5.4) Monocytes # (Auto) 1.2 10 ^3/uL (0-1.3) Eosinophils # (Auto) 0.3 10 ^3/uL (0-0.8) Basophils # (Auto) 0.1 10 ^3/uL (0-0.2) Nucleated Red Blood Cells 0.4 % Total Bilirubin 0.7 mg/dL (0.2-1.0) Aspartate Amino Transferase (AST) 16 U/L (13-40) Alanine Aminotransferase (ALT) 24 U/L (7-40) Alkaline Phosphatase 64 U/L (46-116) Total Protein 7.2 g/dL (5.7-8.2) Albumin 4.6 g/dL (3.2-4.8) Urine Color Light-yellow (Yellow) Urine Clarity Clear (Clear) Urine pH 5.5 (5.0-9.0) Urine Specific [place] 1.027 (1.001-1.035) Urine Protein Negative (Negative) Urine Ketones Negative (Negative) Urine Blood 1+ /uL (Negative) Urine Nitrite Negative (Negative) Urine Bilirubin Negative (Negative) Urine Urobilinogen Normal mg/dL (Negative) Urine Leukocyte Esterase 3+ /uL (Negative) Urine RBC 32 /hpf (0 - 3) Urine WBC Clumps Present /hpf (None Seen) Urine Microscopic WBC 106 /HPF (0-3) Urine Squamous Epithelial Cells Few /hpf (<5) Urine Bacteria None seen /hpf (None Seen) Urine Mucus Few (None Seen) Urine Glucose Normal mg/dL (Normal) Other Laboratory Tests 07/29/24 06:28 07/27/24 05:37 Brief Hx & Hospital Course: 33-year-old male with a history of urethral stricture noncompliant with a Vale catheter management came in complaining of urinary retention found to have sepsis secondary to urinary tract infection treated with Rocephin urine cultures came negative patient is seen by Urology Dr. Bledsoe who put in the Vale and advised follow up in four weeks for Vale removal patient is noncompliant with the catheter management. Discharged home on Keflex oxybutynin and [place] he will follow up with the Urology Dr Ramires in four weeks for Vale catheter removal Consults/Reason for consult Urology Dr. Ramires Operations or Procedures CT abdomen pelvis without contrast Condition at Discharge: Fair Final Diagnosis/Problems List Sepsis secondary to urinary tract infection: Urine cultures negative continue Rocephin Acute urinary retention : Consult by Urology Dr. Ramires appreciated Vale to gravity outpatient follow up with the Urology in four weeks for Vale removal Noncompliance with catheter management Urethral stricture Lower abdominal pain secondary to urinary retention: Noncompliance with catheter managemen Discharge Disposition: Home Discharge Instruct/Medications Diet: Regular Activity: See Comment Activity comment: Off work for one week Follow Up/Referral: Follow up with the Urology Dr. Ramires in four weeks for Vale catheter removal Medications: Keflex [place] Oxybutynin Sent to [facility] 35 (Time taken for discharge summary 35 minutes) Discharge Statement: "Patient was advised to return to the ER or call 911 if any headaches, dizziness, shortness of breath, chest pain, abdominal pain, bleeding, fevers, or worsening of medical condition. Patient was counseled about treatment plan, medications, possible side effects, patientverbalized understanding. All questions were answered to the best of my ability. This discharge took greater then 30 minutes in planning, reviewing documentation, counseling the patient, and discussing with other team members." ASSESSMENT ASSESSMENT Hospital Course Uneventful Assessment Sepsis secondary to urinary tract infection: Urine cultures negative continue Rocephin Acute urinary retention : Consult by Urology Dr. Ramires appreciated Vale to gravity outpatient follow up with the Urology in four weeks for Vale removal Noncompliance with catheter management Urethral stricture Lower abdominal pain secondary to urinary retention: Noncompliance with catheter managemen Date of Service: July 29, 2024 Billing Provider: JARET HARTMANN MD Common Visit Codes: [id number] INP/OBS CARE(HIGH) JARET HARTMANN MD July 29, 2024 10:07
[2024-07-29 13:00] VITALS: BP 121/55; PULSE 71; RESP 20; TEMP 98; O2SAT 98
== END 2024-07-29 15:40 | disposition home or self-care (01) | DRG 466 ==
LOC: EDBD 15:58 → ER 16:01 → OVERFLOW 18:18 → EAST 21:38
PROVIDERS: ADMIT Family Medicine; ATTEND Family Medicine
DX: T83.511A Infection and inflammatory reaction due to indwelling urethral catheter, initial encounter (principal); I12.9 Hypertensive chronic kidney disease with stage 1 through stage 4 chronic kidney disease, or unspecified chronic kidney disease; N30.00 Acute cystitis without hematuria; K42.9 Umbilical hernia without obstruction or gangrene; N18.9 Chronic kidney disease, unspecified; K59.00 Constipation, unspecified; N35.919 Unspecified urethral stricture, male, unspecified site; Z79.899 Other long term (current) drug therapy; Z91.199 Patient's noncompliance with other medical treatment and regimen due to unspecified reason; Z87.442 Personal history of urinary calculi; Z82.49 Family history of ischemic heart disease and other diseases of the circulatory system; Z88.2 Allergy status to sulfonamides; Z88.1 Allergy status to other antibiotic agents; Z88.6 Allergy status to analgesic agent; Y84.6 Urinary catheterization as the cause of abnormal reaction of the patient, or of later complication, without mention of misadventure at the time of the procedure
CPT/HCPCS: 36415; 80048; 80053; 81001; 85025; 87081; 87086; 93005; G0378